=== PATIENT | female | born 1950 | race Two or more races ===

== ENCOUNTER 2020-03-04 22:59 | Inpatient (IN) | payer MEDICARE, MEDICAID ==
[~2020-03-04] VITALS: Ht 160 cm; Wt 54.4 kg
[2020-03-04] MEDS ORDERED: LANTUS SOL100 UNIT/1 SUBQ (23:08)
--- NOTE | 2020-03-04 23:11 | Emergency Room Report ---
History of Present Illness General Chief Complaint: Flu Like Symptoms Source: Patient, EMS Present Illness HPI This is a 69-year-old Setswana speaking female with a history of diabetes and high blood pressure. She presents with chief complaint of weakness and cough. She had symptoms for 7 days. She had generalized weakness, body pain, shortness of breath, cough. No Covid testing done prior. EMS was called 4 days ago and patient did not want to go to the hospital. Her oxygenation then was normal. The same EMS personnel responded to 911 call today. She had cough and symptoms worsen. Her room air oxygenation was 87%. They put her on 4 L and brought her here. Patient said symptom and worsening. Decreased appetite. Been in bed for the last 4 days. No nausea or vomiting or diarrhea. Subjective fever and chills. Coughing is productive of whitish sputum. Worse with exertion. Better with rest. Unknown sick contact. 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 Patient History Past Medical History: see triage record, old chart reviewed, DM, HTN Past Surgical History: other Pertinent Family History: none Last Menstrual Period: n/a Now: No Immunizations: other Reviewed Nursing Documentation: PMH: Agreed; PSxH: Agreed Nursing Documentation-PMH Past Medical History: No History, Except For Hx Hypertension: Yes Hx Diabetes: Yes Review of Systems Constitutional: Reports: chills, fever, malaise Eye: Denies: eye pain, blurred vision ENT: Denies: ear pain, nose congestion, throat swelling Respiratory: Reports: cough, shortness of breath Cardiovascular: Denies: chest pain, palpitations Gastrointestinal: Denies: abdominal pain, diarrhea, nausea, vomiting Musculoskeletal: Denies: back pain, joint pain Skin: Denies: rash Neurological: Denies: headache, numbness Endocrine: Denies: increased thirst, increased urine Hematologic/Lymphatic: Denies: easy bruising All Other Systems: negative except mentioned in HPI Physical Exam Vital Signs Date Time Temp Pulse Resp B/P (MAP) Pulse Ox O2 Delivery O2 Flow Rate FiO2 03/04/20 22:56 99.0 72 16 154/74 (100) 94 Nasal Cannula 4.0 Vitals with hypoxia and high blood pressure Sp02 EP Interpretation: reviewed, abnormal General Appearance: alert, mild distress, other - ill appearing Head: normocephalic, atraumatic Eyes: bilateral eye PERRL, bilateral eye EOMI ENT: hearing grossly normal, normal pharynx Neck: full range of motion, supple, no meningismus Respiratory: chest non-tender, normal breath sounds, rhonchi Cardiovascular #1: regular rate, rhythm, no murmur Gastrointestinal: normal bowel sounds, non tender, no mass, no organomegaly, no bruit, non-distended Musculoskeletal: back normal, normal range of motion, gait/station normal Psychiatric: mood/affect normal Procedures Critical Care Time Critical Care Time Critical care is mandated in this patient who presented with hypoxia secondary to Covid pneumonia. Patient require my urgent intervention to attenuate the risks of () which may lead to cardiovascular collapse and . Critical care time is 35 minutes excluding any reportable procedure. Critical care time included evaluation, multiple reevaluation, looking at old charts, interpreting laboratory and diagnostic data, discussing case with patient and family and consultants, and charting. Medical Decision Making Diagnostic Impression: Primary Impression: Pneumonia due to COVID-19 virus Additional Impressions: Acute respiratory failure due to COVID-19 Hypokalemia Hyperglycemia due to type 2 diabetes mellitus Qualified Codes: E11.65 - Type 2 diabetes mellitus with hyperglycemia ER Course This patient presents with cough and hypoxia. She probably had Covid pneumonia. Antibiotics given. Steroid and Lovenox given also. Oxygenation is stable on 4 L. Will admit for IV antibiotics and further work-up. I contacted Dr. Poole for admission. EKG Diagnostic Results Troponin ordered: Yes Rate: normal Rhythm: NSR ST Segments: no acute changes Rhythm Strip Diag. Results EP Interpretation: yes Rate: 88 Rhythm: NSR, no PVC's, no ectopy Chest X-Ray Diagnostic Results Chest X-Ray Diagnostic Results : Chest X-Ray Ordered: Yes # of Views/Limited/Complete: 1 View Indication: Shortness of Breath EP Interpretation: Yes Interpretation: no effusion, no pneumothorax, other - Bilateral infiltrates Impression: Other Electronically Signed by: Lamonte Maciel MD Last Vital Signs Date Time Temp Pulse Resp B/P (MAP) Pulse Ox O2 Delivery O2 Flow Rate FiO2 03/04/20 22:56 99.0 72 16 154/74 (100) 94 Nasal Cannula 4.0 Status: improved Disposition: ADMITTED INPATIENT Condition: Serious Lamonte Maciel MD Mar 04, 2020 23:11
[2020-03-04] MEDS ORDERED: Azithromycin 500 MG in NS 275 ML IVPB ONE (23:15)
[2020-03-04] MEDS ORDERED: dexAMETHasone 10mg/ml Inj IV ONE (23:15)
[2020-03-04] MEDS ORDERED: cefTRIAXone 1 GM in NS 55 ML IV ONE (23:15)
[2020-03-04] MEDS ORDERED: Acetaminophen 500mg (ES) tab ORAL ONE (23:15)
[2020-03-04] MEDS ORDERED: Enoxaparin 100mg Inj SUBQ ONE (23:15)
--- NOTE | 2020-03-04 23:30 | NUR ---
ED Nurse Note: Pt brought in by ambulance. Ptis pale, pashto speaking, co of head pain and feeling short of breath. SHe has a low grade fever and persistent cough. She has clear secreations when coughing. Per EMS her SPO2 was 80% on RA. She is currently 97% on 4LNC. She says that she feels nauseated and that she hasnt been able to eat or drink for 7 days. She is axox4 but forgetfull. IV placed, labs sent, COVID swab sent, EKG done at bedside.
--- NOTE | 2020-03-04 23:33 | Diagnostic Imaging Report ---
EXAM: XR Chest, 1 View CLINICAL HISTORY: SOB TECHNIQUE: Frontal view of the chest. COMPARISON: No relevant prior studies available. FINDINGS: Lungs: Multifocal bilateral airspace opacities consistent with multifocal pneumonia. Pleural space: No pleural effusion. No pneumothorax. Heart: Unremarkable. No cardiomegaly. IMPRESSION: Multifocal bilateral airspace opacities consistent with multifocal pneumonia. Correlate for Covid.
[2020-03-04 23:40] LABS: BASOPHILS % (AUTO) 0.2 % (0.0-2.0); EOSINOPHILS % (AUTO) 0.1 % (0.0-3.0); HEMATOCRIT 41.5 % (37.0-47.0); HEMOGLOBIN 14.1 G/DL (12.0-16.0); LYMPHOCYTES % (AUTO) 11.8 % (20.0-45.0); MEAN CORPUSCULAR VOLUME 88 FL (80-99); MONOCYTES % (AUTO) 3.8 % (1.0-10.0); NEUTROPHILS % (AUTO) 84.2 % (45.0-75.0); PLATELET COUNT 334 K/UL (150-450); RED BLOOD COUNT 4.72 M/UL (4.20-5.40); RED CELL DISTRIBUTION WIDTH 11.7 % (11.6-14.8); WHITE BLOOD COUNT 7.3 K/UL (4.8-10.8)
[2020-03-04 23:52] LABS: ANION GAP 18 mmol/L (5-15); BLOOD UREA NITROGEN 16 mg/dL (7-18); CALCIUM 9.1 MG/DL (8.5-10.1); CARBON DIOXIDE 22 MMOL/L (21-32); CHLORIDE 93 MMOL/L (98-107); CREATININE 0.8 MG/DL (0.55-1.30); POTASSIUM 2.9 MMOL/L (3.5-5.1); SODIUM 133 MMOL/L (136-145)
[2020-03-04 23:54] LABS: INR 0.9 (0.9-1.1)
[2020-03-04 23:58] VITALS: BP 152/72
[2020-03-05 00:07] LABS: ALANINE AMINOTRANSFERASE 19 U/L (12-78); ALBUMIN 2.9 G/DL (3.4-5.0); ALBUMIN/GLOBULIN RATIO 0.6 (1.0-2.7); ALKALINE PHOSPHATASE 89 U/L (46-116); ASPARTATE AMINO TRANSFERASE 28 U/L (15-37); BILIRUBIN,TOTAL 0.8 MG/DL (0.2-1.0); CKMB < 0.5 NG/ML (0.0-3.6); CREATINE KINASE 30 U/L (26-308); FERRITIN 659 NG/ML (8-388); LACTATE DEHYDROGENASE 418 U/L (81-234)
--- NOTE | 2020-03-05 00:10 | NUR ---
ED Nurse Note: Report given to Yolande
--- NOTE | 2020-03-05 00:56 | NUR ---
TRANSFER TO FLOOR: Patient transferred to as ordered, per ER MD. Report given to Yolande [id number]. Belongings and medications sent with pt. Belongings list done. Pt transfered with isolation precautions maintained.
[2020-03-05 01:01] LABS: APPEARANCE,URINE CLEAR; BILIRUBIN, URINE NEGATIVE (NEGATIVE); COLOR,URINE PALE YELLOW; GLUCOSE, URINE (UA) 4+ (NEGATIVE); KETONES,URINE 4+ (NEGATIVE); LEUKOCYTE ESTERASE ,URINE NEGATIVE (NEGATIVE); NITRITE,URINE NEGATIVE (NEGATIVE); PH,URINE 5 (4.5-8.0); PROTEIN,URINE 2+ (NEGATIVE); UROBILINOGEN,URINE NORMAL MG/DL (0.0-1.0)
[2020-03-05 01:25] VITALS: BP 125/62
[2020-03-05] MEDS ORDERED: guaiFENesin /DM 10ml syrup ORAL PRN (03:15)
[2020-03-05 04:00] VITALS: BP 126/65
[2020-03-05] MEDS ORDERED: PAXIL30 MG ORAL (05:04)
[2020-03-05] MEDS ORDERED: AMLODIPINE BESYL5 MG ORAL (05:04)
[2020-03-05] MEDS: NS w/KCl 20mEq 1000ml 1,000 ML IV SCH ×2 (05:38→13:16)
[2020-03-05] MEDS: NovoLOG Insulin Flexpen SUBQ SCH ×4 (06:03→21:34)
[2020-03-05] MEDS ORDERED: NovoLOG Insulin Flexpen SUBQ SCH ×3 (06:30)
--- NOTE | 2020-03-05 06:45 | NUR ---
NURSE HAND-OFF: Important Events on Shift: 1 soft BM this shift; uses the bedpan when not feeling week, otherwise incontinent of both bowel and bladder. new orders noted and initiated Patient Status: stable at this time Diet: see chart Pending Orders: see chart Pending Results/Labs:see chart Pending MD notification:see chart Latest Vital Signs: Temperature 97.4 , Pulse 64 , B/P 126 /65 , Respiratory Rate 16 , O2 SAT 98 , Nasal Cannula, O2 Flow Rate 4.0 . Vital Sign Comment: see above Latest Khoury Fall Score: 70 Fall Risk: High Risk Safety Measures: Call light Within Reach, Bed Alarm Zone 2, Side Rails Side Rails x2, Bed position Low and Locked. Fall Precautions: Yellow Socks Door Sign Patient Fall Education Report will be given to SUNSHINE Iqbal.
--- NOTE | 2020-03-05 07:26 | NUR ---
nurse's notes: home meds with receipt # [id number] was brought down to pharmacy by this RN.; receipt in chart
--- NOTE | 2020-03-05 07:50 | NUR ---
NURSE NOTES: RN received the patient in bed, aaoX4. Patient on 4 L of NC. C/O of nausea but refused Ondansetron. Bed in lowest position and locked. Call light within reach. Bed in lowest position and locked, bed alarm on. IV running, patent, dry and asymptomatic. Will continue to monitor.
[2020-03-05 07:58] LABS: HEMATOCRIT 37.7 % (37.0-47.0); HEMOGLOBIN 12.7 G/DL (12.0-16.0); MEAN CORPUSCULAR VOLUME 89 FL (80-99); PLATELET COUNT 309 K/UL (150-450); RED BLOOD COUNT 4.25 M/UL (4.20-5.40); RED CELL DISTRIBUTION WIDTH 11.9 % (11.6-14.8); WHITE BLOOD COUNT 6.6 K/UL (4.8-10.8)
[2020-03-05 08:00] VITALS: BP 131/69
--- NOTE | 2020-03-05 08:14 | History and Physical Report ---
DATE OF ADMISSION: 03/04/2020 CHIEF COMPLAINT: Pneumonia HISTORY OF PRESENT ILLNESS: The patient is a 69-year-old female. She has a history of hypertension and diabetes, presented with complaints of one week of progressive cough, congestion, shortness of breath, fevers, and chills. On evaluation in the emergency room, she had evidence of multifocal pneumonia. She was hypoxic and placed on 4 liters nasal cannula. Rapid COVID was unable to be done because of lack of reagents. The patient was given a dose of Decadron and has been started on IV antibiotic therapy for possible bacterial pneumonia. She is admitted for further evaluation and care. PAST MEDICAL HISTORY: As above. PAST SURGICAL HISTORY: None. CURRENT MEDICATIONS: Reconciled and reviewed. ALLERGIES: None. FAMILY HISTORY: None. SOCIAL HISTORY: Negative for tobacco, ethanol, or drugs. REVIEW OF SYSTEMS: GENERAL: Positive for fevers and chills, but no night sweats. HEENT: No headaches or visual changes. CARDIOPULMONARY: No chest pain. Positive for shortness of breath and cough. GASTROINTESTINAL: No nausea or vomiting. GENITOURINARY: No urgency or frequency. MUSCULOSKELETAL: No joint pain or swelling. NEUROLOGIC: No evidence of seizures. PHYSICAL EXAMINATION: VITAL SIGNS: Temperature 97.3, pulse 68, respirations 22, blood pressure 125/62. GENERAL: The patient is a thin female, in no apparent distress. HEART: Regular rate and rhythm. LUNGS: Clear anteriorly. ABDOMEN: Soft, nontender, and nondistended. EXTREMITIES: Without clubbing, cyanosis or edema. PERTINENT DATA: Chest x-ray showed multifocal bilateral infiltrates. White count was 7, hemoglobin 14. Lactic acid was 2. Troponin was negative. D-dimer is 1.8. UA was clear. ASSESSMENT: This is a 69-year-old female with history of hypertension and diabetes, admitted with complaints of pneumonia, possibly secondary to COVID-19. PLAN: 1. IV steroids. 2. Await COVID PCR. 3. Continue supplemental oxygen. 4. DVT and stress ulcer prophylaxes. 5. Monitor chest x-ray. 6. ID, Pulmonary, and Cardiology evaluations have been obtained. Sanya Poole M.D. DR: JOHN JOB#: [id number] CC:
[2020-03-05 08:31] LABS: ALANINE AMINOTRANSFERASE 15 U/L (12-78); ALBUMIN 2.4 G/DL (3.4-5.0); ALBUMIN/GLOBULIN RATIO 0.5 (1.0-2.7); ALKALINE PHOSPHATASE 78 U/L (46-116); ANION GAP 21 mmol/L (5-15); ASPARTATE AMINO TRANSFERASE 24 U/L (15-37); BILIRUBIN,TOTAL 0.5 MG/DL (0.2-1.0); BLOOD UREA NITROGEN 14 mg/dL (7-18); CALCIUM 8.5 MG/DL (8.5-10.1); CARBON DIOXIDE 17 MMOL/L (21-32); CHLORIDE 100 MMOL/L (98-107); CREATININE 0.7 MG/DL (0.55-1.30); POTASSIUM 3.3 MMOL/L (3.5-5.1); SODIUM 137 MMOL/L (136-145)
[2020-03-05] MEDS ORDERED: dexAMETHasone 10mg/ml Inj IV SCH ×2 (09:00)
[2020-03-05] MEDS: Levemir Flexpen SUBQ SCH (09:48)
--- NOTE | 2020-03-05 11:05 | NUR ---
CASE MANAGEMENT:REVIEW 69YR OLD MALE BIBA FROM HOME CC: FLU LIKE SYMPTOMS. 89% ON RA SI: COVID PNEUMONIA 98.9 72 16 154/74 94% ON 4L/NC NA-133 K-2.9 GLUCOSE+293 IS: IV AZITHROMYCIN IV DECADRON 1L NS BOLUS IV ROCEPHIN TYLENOL PO LOVENOX SQ CXR BLOOD CX : TO MED/SURG UNIT [facility]
--- NOTE | 2020-03-05 11:14 | Consultation ---
DATE OF CONSULTATION: 03/05/2020 INFECTIOUS DISEASES CONSULTATION This consult is for coverage of Dr. Diaz. CONSULTING PHYSICIAN: Lele Schuster MD PRIMARY ATTENDING PHYSICIAN: Sanya Poole MD. REASON FOR CONSULTATION: Pneumonia, likely COVID-19 disease. HISTORY OF PRESENT ILLNESS: This is a 69-year-old Tajik female admitted yesterday from home complaining of fever, weakness, cough, shortness of breath. The patient had these symptoms for 7 days, four days ago the family called for ambulance but the patient refused to come to the hospital. She was hypoxemic with O2 saturation of 87% in room air. PAST MEDICAL HISTORY: Diabetes and hypertension. MEDICATIONS: Getting Zithromax, Rocephin, Paxil, enoxaparin, amlodipine, dexamethasone, insulin detemir, insulin aspart, cough syrup, Tylenol. SOCIAL HISTORY: Single, originally from [place]. No history of alcohol, drug abuse, or smoking. REVIEW OF SYSTEMS: Weakness, dry cough, chest pain, decrease in appetite. PHYSICAL EXAMINATION: VITAL SIGNS: Temperature 97.3, pulse 64, blood pressure 131/69. GENERAL APPEARANCE: Seems to be thin. HEAD AND NECK: No teeth. HEART: Normal rate. LUNGS: Clear. ABDOMEN: Soft and nontender. EXTREMITIES: No edema. NEUROLOGIC: Awake, alert, oriented. LABORATORY AND DIAGNOSTIC DATA: WBC 6.6, hemoglobin 12.7, hematocrit 37.7, and platelets 309. Sodium 137, potassium 3.8, chloride 100, bicarb 17, BUN 14, creatinine 0.7, glucose 299. Chest x-ray showed bilateral multifocal infiltrate consistent with multifocal pneumonia. IMPRESSION: Pneumonia, highly suspected for COVID pneumonia, has diabetes mellitus with hyperglycemia, has hypoxemia, four liters of oxygen by nasal cannula, lymphocytopenia, hypertension. RECOMMENDATION: Continue dexamethasone, ceftriaxone, and Zithromax. Awaiting for COVID-19 PCR. At the end of my exam, I thank Dr. Poole, for involving me in the care of this patient. Lele Schuster M.D. DR: Brent JOB#: [id number] CC:
[2020-03-05 12:00] VITALS: BP_SYST 119; BP_SYST 134; BP_DIAS 60; BP_DIAS 70
--- NOTE | 2020-03-05 12:00 | NUR ---
NURSE NOTES: The first set of vital signs for 1200 is documented in error. See the second vital signs.
--- NOTE | 2020-03-05 12:39 | NUR ---
CHARGE NURSE NOTE: K-3.3. notified.
--- NOTE | 2020-03-05 13:26 | NUR ---
NURSE NOTES: Patient refused K-Dur saying that she has hard time digesting PO meds. RN notified Dr. Poole and waiting for further orders. Will continue to monitor.
[2020-03-05] MEDS ORDERED: Albuterol 90mcg Inhaler 8gm INH PRN (14:30)
--- NOTE | 2020-03-05 14:33 | Pulmonology Progress Note ---
Subjective ROS Limited/Unobtainable: No Allergies: Coded Allergies: No Known Allergies (Unverified , 03/04/20) Objective Last 24 Hour Vital Signs Date Time Temp Pulse Resp B/P (MAP) Pulse Ox O2 Delivery O2 Flow Rate FiO2 03/05/20 10:15 97.3 03/05/20 09:46 64 131/69 03/05/20 08:00 97.3 64 18 131/69 (89) 95 03/05/20 04:00 97.4 64 16 126/65 (85) 98 03/05/20 01:25 97.3 68 22 125/62 (83) 96 03/05/20 00:54 98.9 68 18 154/82 97 Nasal Cannula 4.0 03/05/20 00:49 Nasal Cannula 4.0 03/04/20 23:58 68 16 Nasal Cannula 4.0 03/04/20 23:58 99.0 68 16 152/72 94 Nasal Cannula 4.0 03/04/20 22:56 99.0 72 16 154/74 (100) 94 Nasal Cannula 4.0 Intake and Output 03/04/20 03/05/20 19:00 07:00 Intake Total 1500 ml Balance 1500 ml Intake Oral 100 ml IV Total 1400 ml # Voids 3 # Bowel Movements 1 Laboratory Tests 03/04/20 23:20: White Blood Count 7.3, Red Blood Count 4.72, Hemoglobin 14.1, Hematocrit 41.5, Mean Corpuscular Volume 88, Mean Corpuscular Hemoglobin 29.8, Mean Corpuscular Hemoglobin Concent 33.9, Red Cell Distribution Width 11.7, Platelet Count 334, Mean Platelet Volume 5.4L, Neutrophils (%) (Auto) 84.2H, Lymphocytes (%) (Auto) 11.8L, Monocytes (%) (Auto) 3.8, Eosinophils (%) (Auto) 0.1, Basophils (%) (Auto) 0.2, Prothrombin Time 10.5, Prothromb Time International Ratio 0.9, Activated Partial Thromboplast Time 27, D-Dimer 1.80H, Sodium Level 133L, Potassium Level 2.9L, Chloride Level 93L, Carbon Dioxide Level 22, Anion Gap 18H , Blood Urea Nitrogen 16, Creatinine 0.8, Estimat Glomerular Filtration Rate > 60, Glucose Level 293H, Lactic Acid Level 2.10H, Calcium Level 9.1, Ferritin 659H, Total Bilirubin 0.8, Aspartate Amino Transf (AST/SGOT) 28, Alanine Aminotransferase (ALT/SGPT) 19, Alkaline Phosphatase 89, Lactate Dehydrogenase 418H, Total Creatine Kinase 30, Creatine Kinase MB < 0.5, Creatine Kinase MB Relative Index 1.6, Troponin I 0.012, C-Reactive Protein, Quantitative 17.4H, Pro-B-Type Natriuretic Peptide 418H, Total Protein 7.8, Albumin 2.9L, Globulin 4.9, Albumin/Globulin Ratio 0.6L, Lipase 179 03/05/20 00:43: Lactic Acid Level 1.40 03/05/20 01:12: POC Whole Blood Glucose [Pending] 03/05/20 05:53: POC Whole Blood Glucose [Pending] 03/05/20 06:55: White Blood Count 6.6, Red Blood Count 4.25, Hemoglobin 12.7, Hematocrit 37.7, Mean Corpuscular Volume 89, Mean Corpuscular Hemoglobin 29.9, Mean Corpuscular Hemoglobin Concent 33.7, Red Cell Distribution Width 11.9, Platelet Count 309, Mean Platelet Volume 5.4L, Neutrophils (%) (Auto) , Lymphocytes (%) (Auto) , Monocytes (%) (Auto) , Eosinophils (%) (Auto) , Basophils (%) (Auto) , Differential Total Cells Counted 100, Neutrophils % (Manual) 86H, Lymphocytes % (Manual) 12L, Monocytes % (Manual) 2, Eosinophils % (Manual) 0, Basophils % (Manual) 0, Band Neutrophils 0, Platelet Estimate Adequate, Platelet Morphology Normal, Red Blood Cell Morphology Normal, Sodium Level 137, Potassium Level 3.3L , Chloride Level 100, Carbon Dioxide Level 17L, Anion Gap 21H, Blood Urea Nitrogen 14, Creatinine 0.7, Estimat Glomerular Filtration Rate > 60, Glucose Level 299H, Hemoglobin A1c 10.6H, Calcium Level 8.5, Magnesium Level 1.8, Total Bilirubin 0.5, Aspartate Amino Transf (AST/SGOT) 24, Alanine Aminotransferase (ALT/SGPT) 15, Alkaline Phosphatase 78, Total Protein 6.8, Albumin 2.4L, Globulin 4.4, Albumin/Globulin Ratio 0.5L 03/05/20 09:38: POC Whole Blood Glucose 304H 03/05/20 11:46: POC Whole Blood Glucose 295H Current Medications Medications (Trade) Dose Ordered Sig/Oj Route PRN Reason Start Time Stop Time Status Last Admin Dose Admin Acetaminophen (Tylenol) 650 mg Q4H PRN ORAL Mild Pain (Pain Scale 1-3) 03/05/20 03:15 04/04/20 03:14 03/05/20 09:45 Amlodipine Besylate (Norvasc) 5 mg DAILY ORAL 03/05/20 09:00 04/04/20 08:59 03/05/20 09:46 Azithromycin (Zithromax) 250 mg Q24H ORAL 03/05/20 21:00 03/12/20 20:59 Ceftriaxone Sodium 1 gm/ Dextrose 55 ml @ 110 mls/hr Q24H IVPB 03/05/20 21:00 03/12/20 20:59 Dexamethasone Sodium Phosphate (Decadron 10mg/ ml Inj) 6 mg DAILY IV 03/06/20 09:00 03/13/20 12:00 Dextrose (Dextrose 50%) 25 ml Q30M PRN IV Hypoglycemia 03/05/20 05:00 06/03/20 04:59 Dextrose (Dextrose 50%) 50 ml Q30M PRN IV Hypoglycemia 03/05/20 05:00 06/03/20 04:59 Enoxaparin Sodium (Lovenox) 40 mg DAILY@2100 SUBQ 03/05/20 21:00 06/03/20 20:59 Famotidine (Pepcid) 20 mg DAILY ORAL 03/05/20 09:00 06/03/20 08:59 03/05/20 09:45 Guaifenesin/ Dextromethorphan (Robitussin DM Syrup) 10 ml Q4H PRN ORAL For Cough 03/05/20 03:15 06/03/20 03:14 Insulin Aspart (NovoLOG) BEFORE MEALS AND HS SUBQ 03/05/20 06:30 06/03/20 06:29 03/05/20 12:00 Insulin Detemir (Levemir) 25 units DAILY SUBQ 03/05/20 09:00 06/03/20 08:59 03/05/20 09:48 Paroxetine HCl (Paxil) 30 mg BEDTIME ORAL 03/05/20 21:00 04/04/20 20:59 Potassium Chloride/Sodium Chloride 1,000 ml @ 100 mls/hr Q10H IV 03/05/20 04:00 04/04/20 03:59 03/05/20 13:16 Potassium Chloride (K-Dur) 40 meq ONCE ORAL 03/05/20 12:45 03/05/20 16:00 Assessment/Plan Assessment/Plan Pulmonary Consultation HPI: The patient is a 69-year-old woman with a past history of hypertension and diabetes, admitted with possible Covid19 Pneumonia,she complained of one week history of worsening cough, shortness of breath, fevers/chills. Noted to be hypoxic requiring4 liters nasal cannula O2. On Dexamethasone/AB per ID Past Medical History: HTN,DM PSH: NC Medications: Noted Allergies: NKDA FH: NC SH: Negative ROS: Negative aside from above Objective: Vital Signs noted: PE: GENERAL: The patient is a thin female, in no apparent distress. HEENR: NCAT,moist mm HEART: Regular rate and rhythm. HS1,HS2 normal LUNGS: CTAB ABDOMEN: SNTND EXTREMITIES: No clubbing, cyanosis or edema. TELEVISION CAMERAMAN: Intact Labs: Noted Chest x-ray showed multifocal bilateral infiltrates. Impression: Possible Covid19 Pneumonia - Covid test pending Hypoxic Respiratory Failure Hypertension Diabetes Plan: - IV steroids/AB per ID - Await COVID PCR. - Oxygen PRN - BD PRN - PPX - Monitor labs - Imaging PRN Zaid Vicente MD Mar 05, 2020 14:33
[2020-03-05 16:00] VITALS: BP 134/70
[2020-03-05] MEDS: Morphine Sulfate 4mg/ml Inj (IV USE ONLY) IVP PRN ×2 (16:05→20:50)
--- NOTE | 2020-03-05 19:30 | NUR ---
NURSE NOTES: Received report from SUNSHINE Zhou. Pt is A&Ox4. Bed locked and in lowest position, call light within reach. IVF infusing well. Pt has no needs right now and is aware of how to use call light and ask for assistance.
--- NOTE | 2020-03-05 19:30 | NUR ---
NURSE HAND-OFF: Important Events on Shift:pain management, instructions on intake of K-dur medicine Patient Status: SOB Diet: consistent carb diet low Pending Orders: n/a Pending Results/Labs:n/a Pending MD notification:n/a Latest Vital Signs: Temperature 97.3 , Pulse 66 , B/P 134 /70 , Respiratory Rate 18 , O2 SAT 96 , Nasal Cannula, O2 Flow Rate 4.0 . Vital Sign Comment: stable Latest Khoury Fall Score: 70 Fall Risk: High Risk Safety Measures: Call light Within Reach, Bed Alarm Zone 2, Side Rails Side Rails x3, Bed position Low and Locked. Fall Precautions: Yellow Socks Door Sign Patient Fall Education Report given to
[2020-03-05 20:00] VITALS: BP 140/78
[2020-03-05] MEDS: cefTRIAXone 1 GM in D5W 55 ML IVPB SCH (20:23)
[2020-03-05] MEDS: Enoxaparin 40mg Inj SUBQ SCH (20:24)
[2020-03-05] MEDS: Azithromycin 250mg tab ORAL SCH (20:25)
[2020-03-05] MEDS: PARoxetine HCL 10mg tab ORAL SCH (20:25)
[2020-03-05] MEDS ORDERED: Enoxaparin 40mg Inj SUBQ SCH (21:00)
[2020-03-06] VITALS: BP 148/78
[2020-03-06] MEDS: Morphine Sulfate 4mg/ml Inj (IV USE ONLY) IVP PRN (01:11)
[2020-03-06] MEDS: NS w/KCl 20mEq 1000ml 1,000 ML IV SCH ×3 (01:11→20:03)
--- NOTE | 2020-03-06 02:18 | Cardiology Progress Note ---
Subjective DATE OF SERVICE: Mar 05, 2020 Weak and withdrawn Still SOB No CP Remains on O2 suppl by nasal cannula Objective Last 24 Hour Vital Signs Date Time Temp Pulse Resp B/P (MAP) Pulse Ox O2 Delivery O2 Flow Rate FiO2 03/06/20 00:00 97.0 60 16 148/78 (101) 98 03/05/20 21:00 Nasal Cannula 4.0 03/05/20 20:00 97.4 62 16 140/78 (98) 95 03/05/20 16:35 97.3 03/05/20 16:00 97.3 66 18 134/70 (91) 96 03/05/20 12:00 97.3 66 18 134/70 (91) 96 03/05/20 12:00 97.3 63 18 119/60 (79) 96 03/05/20 10:15 97.3 03/05/20 09:46 64 131/69 03/05/20 09:00 Nasal Cannula 4.0 03/05/20 08:00 97.3 64 18 131/69 (89) 95 03/05/20 04:00 97.4 64 16 126/65 (85) 98 ROS: unchanged from 03/04/20 HEENT: normal ENT inspection RHYTHM: NSR, PACs LUNGS: bilateral rhonchi CARDIAC: normal rate, regular rhythm, normal S1 and S2, gallop/S4 ABDOMEN: normal bowel sounds, non tender, soft, no organomegaly EXTREMITIES: non-tender, no calf tenderness, trace edema Laboratory Tests Test 03/05/20 05:53 03/05/20 06:55 03/05/20 09:38 03/05/20 11:46 POC Whole Blood Glucose Pending 304 MG/DL (74-106) H 295 MG/DL (74-106) H White Blood Count 6.6 K/UL (4.8-10.8) Red Blood Count 4.25 M/UL (4.20-5.40) Hemoglobin 12.7 G/DL (12.0-16.0) Hematocrit 37.7 % (37.0-47.0) Mean Corpuscular Volume 89 FL (80-99) Mean Corpuscular Hemoglobin 29.9 PG (27.0-31.0) Mean Corpuscular Hemoglobin Concent 33.7 G/DL (32.0-36.0) Red Cell Distribution Width 11.9 % (11.6-14.8) Platelet Count 309 K/UL (150-450) Mean Platelet Volume 5.4 FL (6.5-10.1) L Neutrophils (%) (Auto) % (45.0-75.0) Lymphocytes (%) (Auto) % (20.0-45.0) Monocytes (%) (Auto) % (1.0-10.0) Eosinophils (%) (Auto) % (0.0-3.0) Basophils (%) (Auto) % (0.0-2.0) Differential Total Cells Counted 100 Neutrophils % (Manual) 86 % (45-75) H Lymphocytes % (Manual) 12 % (20-45) L Monocytes % (Manual) 2 % (1-10) Eosinophils % (Manual) 0 % (0-3) Basophils % (Manual) 0 % (0-2) Band Neutrophils 0 % (0-8) Platelet Estimate Adequate Platelet Morphology Normal Red Blood Cell Morphology Normal Sodium Level 137 MMOL/L (136-145) Potassium Level 3.3 MMOL/L (3.5-5.1) L Chloride Level 100 MMOL/L (98-107) Carbon Dioxide Level 17 MMOL/L (21-32) L Anion Gap 21 mmol/L (5-15) H Blood Urea Nitrogen 14 mg/dL (7-18) Creatinine 0.7 MG/DL (0.55-1.30) Estimat Glomerular Filtration Rate > 60 mL/min (>60) Glucose Level 299 MG/DL (74-106) H Hemoglobin A1c 10.6 % (4.3-6.0) H Calcium Level 8.5 MG/DL (8.5-10.1) Magnesium Level 1.8 MG/DL (1.8-2.4) Total Bilirubin 0.5 MG/DL (0.2-1.0) Aspartate Amino Transf (AST/SGOT) 24 U/L (15-37) Alanine Aminotransferase (ALT/SGPT) 15 U/L (12-78) Alkaline Phosphatase 78 U/L (46-116) Total Protein 6.8 G/DL (6.4-8.2) Albumin 2.4 G/DL (3.4-5.0) L Globulin 4.4 g/dL Albumin/Globulin Ratio 0.5 (1.0-2.7) L Test 03/05/20 16:39 03/05/20 21:25 POC Whole Blood Glucose 234 MG/DL (74-106) H 274 MG/DL (74-106) H Assessment/Plan Assessment/Plan Pneumonia Hypoxia Possible Covid 19 PNA Lactic acidosis resolving Hypertension/HHD Chronic diastolic CHF NIDDM IVF O2 suppl Respiratory support F/U cultures and Covid swab Antimicrobials per ID DVT prophyl Zaid Rosado MD Mar 06, 2020 02:18
[2020-03-06 04:00] VITALS: BP 129/61
[2020-03-06] MEDS: NovoLOG Insulin Flexpen SUBQ SCH ×4 (07:06→21:00)
--- NOTE | 2020-03-06 07:25 | NUR ---
NURSE HAND-OFF: Important Events on Shift: Pain management Patient Status: calm Diet: CCHO low Pending Orders: Pending Results/Labs: Covid PCR Pending MD notification: Latest Vital Signs: Temperature 97.1 , Pulse 67 , B/P 129 /61 , Respiratory Rate 16 , O2 SAT 97 , Nasal Cannula, O2 Flow Rate 4.0 . Vital Sign Comment: VSS Latest Khoury Fall Score: 70 Fall Risk: High Risk Safety Measures: Call light Within Reach, Bed Alarm Zone 2, Side Rails Side Rails x3, Bed position Low and Locked. Fall Precautions: Yellow Socks Door Sign Patient Fall Education Report given to SUNSHINE Zhou.
--- NOTE | 2020-03-06 07:39 | NUR ---
NURSE NOTES: RN received patient in bed, aaoX4. Patient shows no s/s of respiratory distress but complains of headache. IV running, asymptomatic, intact and dry. Call light within reach. Bed in lowest position and locked. Will continue to monitor. Addendum: 03/06/20 at 1050 by Abelardo Prieto RN Patient complains of slight headache but refused Tylenol.
[2020-03-06 08:00] VITALS: BP 149/78
[2020-03-06 08:22] LABS: HEMATOCRIT 38.3 % (37.0-47.0); HEMOGLOBIN 13.2 G/DL (12.0-16.0); MEAN CORPUSCULAR VOLUME 87 FL (80-99); PLATELET COUNT 355 K/UL (150-450); RED BLOOD COUNT 4.39 M/UL (4.20-5.40); RED CELL DISTRIBUTION WIDTH 11.9 % (11.6-14.8); WHITE BLOOD COUNT 10.9 K/UL (4.8-10.8)
[2020-03-06] MEDS: Levemir Flexpen SUBQ SCH (09:18)
[2020-03-06] MEDS: dexAMETHasone 10mg/ml Inj IV SCH (09:19)
[2020-03-06 09:32] LABS: ALANINE AMINOTRANSFERASE 12 U/L (12-78); ALBUMIN 2.3 G/DL (3.4-5.0); ALBUMIN/GLOBULIN RATIO 0.5 (1.0-2.7); ALKALINE PHOSPHATASE 73 U/L (46-116); ANION GAP 10 mmol/L (5-15); ASPARTATE AMINO TRANSFERASE 23 U/L (15-37); BILIRUBIN,TOTAL 0.2 MG/DL (0.2-1.0); BLOOD UREA NITROGEN 9 mg/dL (7-18); CALCIUM 8.6 MG/DL (8.5-10.1); CARBON DIOXIDE 26 MMOL/L (21-32); CHLORIDE 102 MMOL/L (98-107); CREATININE 0.6 MG/DL (0.55-1.30); POTASSIUM 3.4 MMOL/L (3.5-5.1); SODIUM 138 MMOL/L (136-145)
--- NOTE | 2020-03-06 10:31 | NUR ---
NURSE NOTES: Patient's temperature is 95.7. Patient asymptomatic. RN made aware and covered the patient with three layers of blanket, lowered the room temperature and provided with heat packs. Will continue to monitor.
[2020-03-06 12:00] VITALS: BP 152/77
--- NOTE | 2020-03-06 12:00 | NUR ---
5 Addendum: 03/06/20 at 1419 by Abelardo Prieto RN documented in error
--- NOTE | 2020-03-06 12:00 | NUR ---
NURSE NOTES: Patient's body temperature now increased to 96.7, asymptomatic. Will continue to monitor.
--- NOTE | 2020-03-06 12:03 | General Progress Note ---
Subjective ROS Limited/Unobtainable: No Constitutional: Reports: malaise, weakness HEENT: Reports: no symptoms Cardiovascular: Reports: no symptoms Respiratory: Reports: cough, shortness of breath Gastrointestinal/Abdominal: Reports: no symptoms Genitourinary: Reports: no symptoms Neurologic/Psychiatric: Reports: anxiety Endocrine: Reports: no symptoms Hematologic/Lymphatic: Reports: no symptoms Allergies: Coded Allergies: No Known Allergies (Unverified , 03/04/20) All Systems: reviewed and negative except above Subjective continued sob. ?hypothermic. on o2. no fevers. pulm, cads, id appreciated. Objective Last 24 Hour Vital Signs Date Time Temp Pulse Resp B/P (MAP) Pulse Ox O2 Delivery O2 Flow Rate FiO2 03/06/20 09:19 67 149/78 03/06/20 09:00 Nasal Cannula 4.0 03/06/20 08:00 95.7 19 149/78 (101) 92 03/06/20 04:00 97.1 67 16 129/61 (83) 97 03/06/20 00:00 97.0 60 16 148/78 (101) 98 03/05/20 21:00 Nasal Cannula 4.0 03/05/20 20:00 97.4 62 16 140/78 (98) 95 03/05/20 16:35 97.3 03/05/20 16:00 97.3 66 18 134/70 (91) 96 Intake and Output 03/05/20 03/06/20 19:00 07:00 Intake Total 480 ml 260 ml Balance 480 ml 260 ml Intake Oral 480 ml Other 260 ml # Voids 3 2 # Bowel Movements 1 Laboratory Tests 03/05/20 16:39: POC Whole Blood Glucose 234H 03/05/20 21:25: POC Whole Blood Glucose 274H 03/06/20 06:34: White Blood Count 10.9#H, Red Blood Count 4.39, Hemoglobin 13.2, Hematocrit 38.3, Mean Corpuscular Volume 87, Mean Corpuscular Hemoglobin 30.0, Mean Corpuscular Hemoglobin Concent 34.3, Red Cell Distribution Width 11.9, Platelet Count 355, Mean Platelet Volume 5.1L, Neutrophils (%) (Auto) , Lymphocytes (%) (Auto) , Monocytes (%) (Auto) , Eosinophils (%) (Auto) , Basophils (%) (Auto) , Differential Total Cells Counted 100, Neutrophils % (Manual) 90H, Lymphocytes % (Manual) 7L, Monocytes % (Manual) 3, Eosinophils % (Manual) 0, Basophils % (Manual) 0, Band Neutrophils 0, Platelet Estimate Adequate, Platelet Morphology Normal, Red Blood Cell Morphology Normal, Sodium Level 138, Potassium Level 3.4L , Chloride Level 102, Carbon Dioxide Level 26, Anion Gap 10, Blood Urea Nitrogen 9, Creatinine 0.6, Estimat Glomerular Filtration Rate > 60, Glucose Level 203H, Calcium Level 8.6, Magnesium Level 1.7L, Total Bilirubin 0.2, Aspartate Amino Transf (AST/SGOT) 23, Alanine Aminotransferase (ALT/SGPT) 12, Alkaline Phosphatase 73, Pro-B-Type Natriuretic Peptide 505H, Total Protein 6.5, Albumin 2.3L, Globulin 4.2, Albumin/Globulin Ratio 0.5L 03/06/20 06:55: POC Whole Blood Glucose 202H 03/06/20 09:11: POC Whole Blood Glucose 211H 03/06/20 11:12: POC Whole Blood Glucose 187H Height (Feet): 5 Height (Inches): 3.00 Weight (Pounds): 120 General Appearance: WD/WN, alert EENT: normal ENT inspection Neck: normal alignment, supple Cardiovascular: normal peripheral pulses, normal rate, regular rhythm Respiratory/Chest: chest wall non-tender, lungs clear, normal breath sounds Abdomen: normal bowel sounds, non tender, soft, no organomegaly Edema: no edema noted Arm (L), no edema noted Arm (R) 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, alert, oriented x 3 Assessment/Plan Problem List: (1) Acute respiratory failure due to COVID-19 ICD Codes: U07.1 - COVID-19; J96.00 - Acute respiratory failure, unspecified whether with hypoxia or hypercapnia SNOMED: 393742354, 38259295 (2) Pneumonia due to COVID-19 virus ICD Codes: U07.1 - COVID-19; J12.82 - Pneumonia due to coronavirus disease 2019 SNOMED: 429114830302821901 (3) Hypokalemia ICD Codes: E87.6 - Hypokalemia; J96.00 - Acute respiratory failure, unspecified whether with hypoxia or hypercapnia SNOMED: 88132810, 12376474 (4) Hyperglycemia due to type 2 diabetes mellitus ICD Codes: E11.65 - Type 2 diabetes mellitus with hyperglycemia; J96.00 - Acute respiratory failure, unspecified whether with hypoxia or hypercapnia SNOMED: 932983218424424, 71732514 Qualifiers: Qualified Codes: E11.65 - Type 2 diabetes mellitus with hyperglycemia Status: stable Assessment/Plan: cont current rx warming measures check TFTs steroids per id ivf o2 resp rx replace Mg and K dvt/stress ulcer prophylaxis Sanya Poole MD Mar 06, 2020 12:03
--- NOTE | 2020-03-06 15:30 | NUR ---
NURSE NOTES: RN collected nasal swab for PCR from the patient's right nostril and sent it to the lab.
--- NOTE | 2020-03-06 15:50 | Pulmonology Progress Note ---
Subjective ROS Limited/Unobtainable: No Allergies: Coded Allergies: No Known Allergies (Unverified , 03/04/20) All Systems: reviewed and negative except above Objective Last 24 Hour Vital Signs Date Time Temp Pulse Resp B/P (MAP) Pulse Ox O2 Delivery O2 Flow Rate FiO2 03/06/20 12:00 96.8 63 18 152/77 (102) 92 03/06/20 09:19 67 149/78 03/06/20 09:00 Nasal Cannula 4.0 03/06/20 08:00 95.7 19 149/78 (101) 92 03/06/20 04:00 97.1 67 16 129/61 (83) 97 03/06/20 00:00 97.0 60 16 148/78 (101) 98 03/05/20 21:00 Nasal Cannula 4.0 03/05/20 20:00 97.4 62 16 140/78 (98) 95 03/05/20 16:35 97.3 03/05/20 16:00 97.3 66 18 134/70 (91) 96 Intake and Output 03/05/20 03/06/20 19:00 07:00 Intake Total 480 ml 260 ml Balance 480 ml 260 ml Intake Oral 480 ml Other 260 ml # Voids 3 2 # Bowel Movements 1 Microbiology Date/Time Source Procedure Growth Status 03/04/20 23:20 Blood Blood Culture - Preliminary NO GROWTH AFTER 24 HOURS Resulted 03/04/20 23:05 Blood Blood Culture - Preliminary NO GROWTH AFTER 24 HOURS Resulted Laboratory Tests 03/05/20 16:39: POC Whole Blood Glucose 234H 03/05/20 21:25: POC Whole Blood Glucose 274H 03/06/20 06:34: White Blood Count 10.9#H, Red Blood Count 4.39, Hemoglobin 13.2, Hematocrit 38.3, Mean Corpuscular Volume 87, Mean Corpuscular Hemoglobin 30.0, Mean Corpuscular Hemoglobin Concent 34.3, Red Cell Distribution Width 11.9, Platelet Count 355, Mean Platelet Volume 5.1L, Neutrophils (%) (Auto) , Lymphocytes (%) (Auto) , Monocytes (%) (Auto) , Eosinophils (%) (Auto) , Basophils (%) (Auto) , Differential Total Cells Counted 100, Neutrophils % (Manual) 90H, Lymphocytes % (Manual) 7L, Monocytes % (Manual) 3, Eosinophils % (Manual) 0, Basophils % (Manual) 0, Band Neutrophils 0, Platelet Estimate Adequate, Platelet Morphology Normal, Red Blood Cell Morphology Normal, Sodium Level 138, Potassium Level 3.4L , Chloride Level 102, Carbon Dioxide Level 26, Anion Gap 10, Blood Urea Nitrogen 9, Creatinine 0.6, Estimat Glomerular Filtration Rate > 60, Glucose Level 203H, Calcium Level 8.6, Magnesium Level 1.7L, Total Bilirubin 0.2, Aspartate Amino Transf (AST/SGOT) 23, Alanine Aminotransferase (ALT/SGPT) 12, Alkaline Phosphatase 73, Pro-B-Type Natriuretic Peptide 505H, Total Protein 6.5, Albumin 2.3L, Globulin 4.2, Albumin/Globulin Ratio 0.5L 03/06/20 06:55: POC Whole Blood Glucose 202H 03/06/20 09:11: POC Whole Blood Glucose 211H 03/06/20 11:12: POC Whole Blood Glucose 187H Current Medications Medications (Trade) Dose Ordered Sig/Oj Route PRN Reason Start Time Stop Time Status Last Admin Dose Admin Acetaminophen (Tylenol) 650 mg Q4H PRN ORAL Mild Pain (Pain Scale 1-3) 03/05/20 03:15 04/04/20 03:14 03/05/20 09:45 Albuterol Sulfate (Proventil MDI) 2 puff Q4H PRN INH Shortness of Breath 03/05/20 14:30 06/03/20 14:29 Amlodipine Besylate (Norvasc) 5 mg DAILY ORAL 03/05/20 09:00 04/04/20 08:59 03/06/20 09:19 Azithromycin (Zithromax) 250 mg Q24H ORAL 03/05/20 21:00 03/12/20 20:59 03/05/20 20:25 Ceftriaxone Sodium 1 gm/ Dextrose 55 ml @ 110 mls/hr Q24H IVPB 03/05/20 21:00 03/12/20 20:59 03/05/20 20:23 Dexamethasone Sodium Phosphate (Decadron 10mg/ ml Inj) 6 mg DAILY IV 03/06/20 09:00 03/13/20 12:00 03/06/20 09:19 Dextrose (Dextrose 50%) 25 ml Q30M PRN IV Hypoglycemia 03/05/20 05:00 06/03/20 04:59 Dextrose (Dextrose 50%) 50 ml Q30M PRN IV Hypoglycemia 03/05/20 05:00 06/03/20 04:59 Enoxaparin Sodium (Lovenox) 40 mg DAILY@2100 SUBQ 03/05/20 21:00 06/03/20 20:59 03/05/20 20:24 Famotidine (Pepcid) 20 mg DAILY ORAL 03/05/20 09:00 06/03/20 08:59 03/06/20 09:19 Guaifenesin/ Dextromethorphan (Robitussin DM Syrup) 10 ml Q4H PRN ORAL For Cough 03/05/20 03:15 06/03/20 03:14 Insulin Aspart (NovoLOG) BEFORE MEALS AND HS SUBQ 03/05/20 06:30 06/03/20 06:29 03/06/20 11:34 Insulin Detemir (Levemir) 25 units DAILY SUBQ 03/05/20 09:00 06/03/20 08:59 03/06/20 09:18 Morphine Sulfate (Morphine Sulfate) 1 mg Q4H PRN IVP Severe Pain (Pain Scale 7-10) 03/05/20 15:30 03/12/20 15:29 03/06/20 01:11 Paroxetine HCl (Paxil) 30 mg BEDTIME ORAL 03/05/20 21:00 04/04/20 20:59 03/05/20 20:25 Potassium Chloride/Sodium Chloride 1,000 ml @ 100 mls/hr Q10H IV 03/05/20 04:00 04/04/20 03:59 03/06/20 01:11 Assessment/Plan Assessment/Plan Pulmonary Progress Note HPI: The patient is a 69-year-old woman with a past history of hypertension and diabetes, admitted with possible Covid19 Pneumonia,she complained of one week history of w orsening cough, shortness of breath, fevers/chills. Remains on 4 liters nasal cannula O2. On Dexamethasone/AB per ID Past Medical History: HTN,DM PSH: NC Medications: Noted Allergies: NKDA FH: NC SH: Negative Objective: Vital Signs noted: PE: Deferred Covid19 Labs: Noted Chest x-ray showed multifocal bilateral infiltrates. Impression: Possible Covid19 Pneumonia - Covid test pending Hypoxic Respiratory Failure Hypertension Diabetes Plan: - IV steroids/AB per ID - Await COVID PCR. - Oxygen PRN - BD PRN - PPX - Monitor labs - Imaging PRN Zaid Vicente MD Mar 06, 2020 15:50
[2020-03-06 16:00] VITALS: BP 138/73
--- NOTE | 2020-03-06 16:53 | NUR ---
NURSE NOTES: Patient's body temperature increased to 96.8. RN provided with more heat packs and increased room temperature to 80.
--- NOTE | 2020-03-06 17:14 | Cardiology Progress Note ---
Subjective DATE OF SERVICE: Mar 06, 2020 Weak but more alert Low temperature noted Still SOB at times No CP Remains on O2 suppl by nasal cannula Covid 19 swab still pending Objective Last 24 Hour Vital Signs Date Time Temp Pulse Resp B/P (MAP) Pulse Ox O2 Delivery O2 Flow Rate FiO2 03/06/20 16:00 96.8 61 18 138/73 (94) 92 03/06/20 12:00 96.8 63 18 152/77 (102) 92 03/06/20 09:19 67 149/78 03/06/20 09:00 Nasal Cannula 4.0 03/06/20 08:00 95.7 19 149/78 (101) 92 03/06/20 04:00 97.1 67 16 129/61 (83) 97 03/06/20 00:00 97.0 60 16 148/78 (101) 98 03/05/20 21:00 Nasal Cannula 4.0 03/05/20 20:00 97.4 62 16 140/78 (98) 95 ROS: unchanged from 03/04/20 HEENT: normal ENT inspection RHYTHM: NSR, PACs LUNGS: bilateral rhonchi CARDIAC: normal rate, regular rhythm, normal S1 and S2, gallop/S4 ABDOMEN: normal bowel sounds, non tender, soft, no organomegaly EXTREMITIES: non-tender, no calf tenderness, trace edema Laboratory Tests Test 03/05/20 21:25 03/06/20 06:34 03/06/20 06:55 03/06/20 09:11 POC Whole Blood Glucose 274 MG/DL (74-106) H 202 MG/DL (74-106) H 211 MG/DL (74-106) H White Blood Count 10.9 K/UL (4.8-10.8) #H Red Blood Count 4.39 M/UL (4.20-5.40) Hemoglobin 13.2 G/DL (12.0-16.0) Hematocrit 38.3 % (37.0-47.0) Mean Corpuscular Volume 87 FL (80-99) Mean Corpuscular Hemoglobin 30.0 PG (27.0-31.0) Mean Corpuscular Hemoglobin Concent 34.3 G/DL (32.0-36.0) Red Cell Distribution Width 11.9 % (11.6-14.8) Platelet Count 355 K/UL (150-450) Mean Platelet Volume 5.1 FL (6.5-10.1) L Neutrophils (%) (Auto) % (45.0-75.0) Lymphocytes (%) (Auto) % (20.0-45.0) Monocytes (%) (Auto) % (1.0-10.0) Eosinophils (%) (Auto) % (0.0-3.0) Basophils (%) (Auto) % (0.0-2.0) Differential Total Cells Counted 100 Neutrophils % (Manual) 90 % (45-75) H Lymphocytes % (Manual) 7 % (20-45) L Monocytes % (Manual) 3 % (1-10) Eosinophils % (Manual) 0 % (0-3) Basophils % (Manual) 0 % (0-2) Band Neutrophils 0 % (0-8) Platelet Estimate Adequate Platelet Morphology Normal Red Blood Cell Morphology Normal Sodium Level 138 MMOL/L (136-145) Potassium Level 3.4 MMOL/L (3.5-5.1) L Chloride Level 102 MMOL/L (98-107) Carbon Dioxide Level 26 MMOL/L (21-32) Anion Gap 10 mmol/L (5-15) Blood Urea Nitrogen 9 mg/dL (7-18) Creatinine 0.6 MG/DL (0.55-1.30) Estimat Glomerular Filtration Rate > 60 mL/min (>60) Glucose Level 203 MG/DL (74-106) H Calcium Level 8.6 MG/DL (8.5-10.1) Magnesium Level 1.7 MG/DL (1.8-2.4) L Total Bilirubin 0.2 MG/DL (0.2-1.0) Aspartate Amino Transf (AST/SGOT) 23 U/L (15-37) Alanine Aminotransferase (ALT/SGPT) 12 U/L (12-78) Alkaline Phosphatase 73 U/L (46-116) Pro-B-Type Natriuretic Peptide 505 pg/mL (0-125) H Total Protein 6.5 G/DL (6.4-8.2) Albumin 2.3 G/DL (3.4-5.0) L Globulin 4.2 g/dL Albumin/Globulin Ratio 0.5 (1.0-2.7) L Test 03/06/20 11:12 03/06/20 16:12 POC Whole Blood Glucose 187 MG/DL (74-106) H 295 MG/DL (74-106) H Microbiology Date/Time Source Procedure Growth Status 03/04/20 23:20 Blood Blood Culture - Preliminary NO GROWTH AFTER 24 HOURS Resulted 03/04/20 23:05 Blood Blood Culture - Preliminary NO GROWTH AFTER 24 HOURS Resulted Assessment/Plan Assessment/Plan Pneumonia Hypoxia Hypothermia Possible Covid 19 PNA Lactic acidosis resolving Hypertension/HHD Acute/chronic diastolic CHF NIDDM IVF Warming measures O2 suppl Steroids Respiratory support F/U cultures and Covid swab Antimicrobials per ID DVT prophyl Agree with metabolic work up incl TSH Zaid Rosado MD Mar 06, 2020 17:14
--- NOTE | 2020-03-06 19:34 | NUR ---
NURSE HAND-OFF: Important Events on Shift:low body temperature, elevated WBC Patient Status: stable Diet: consistent carb diet low Pending Orders: n/a Pending Results/Labs:n/a Pending MD notification:n/a Latest Vital Signs: Temperature 96.8 , Pulse 61 , B/P 138 /73 , Respiratory Rate 18 , O2 SAT 92 , Nasal Cannula, O2 Flow Rate 4.0 . Vital Sign Comment: slightly low body temperature Latest Khoury Fall Score: 70 Fall Risk: High Risk Safety Measures: Call light Within Reach, Bed Alarm Zone 2, Side Rails Side Rails x3, Bed position Low and Locked. Fall Precautions: Yellow Socks Door Sign Patient Fall Education Report given to ARLET Stauffer. Addendum: 03/06/20 at 1943 by Abelardo Prieto RN PCR collected and result pending
--- NOTE | 2020-03-06 19:40 | NUR ---
NURSE NOTES: The patient is alert and oriented x3, a Kiswahili speaker and is on 4 liters of oxygen via NC with Spo2 of about 92 %. The patient was noted with anxiety and agitations. She continuously yelling and putting on the call light. A calm environment and translation was provided as indicated. She was given he pain medicine, morphine suf 1mg and was able to relaxed. She is able to turned and re-position herself and presently has a left AC 20g IV line that is patent and asymptomatic. The bed in lowest level,locked and the call light within easy reach. will continue to monitor as indicated.
[2020-03-06 20:00] VITALS: BP 136/70
[2020-03-06] MEDS: cefTRIAXone 1 GM in D5W 55 ML IVPB SCH (20:43)
[2020-03-06] MEDS: PARoxetine HCL 10mg tab ORAL SCH (20:43)
[2020-03-06] MEDS: Azithromycin 250mg tab ORAL SCH (20:43)
[2020-03-06] MEDS: Enoxaparin 40mg Inj SUBQ SCH (20:45)
[2020-03-07] VITALS: BP 135/68
[2020-03-07 04:00] VITALS: BP 152/74
--- NOTE | 2020-03-07 04:36 | NUR ---
NURSE NOTES: The patient has continuos anxiety and was given her PRN morphine sulphate well tolerated. She slept about 8 hrs last night but wakeup multiple times saying she will like to go home. The patient is confused and is on 4 liters of oxygen with Spo2 @ 93%. will continue to monitor as indicated
[2020-03-07] MEDS: NS w/KCl 20mEq 1000ml 1,000 ML IV SCH ×2 (06:00→17:16)
[2020-03-07] MEDS: NovoLOG Insulin Flexpen SUBQ SCH ×4 (06:37→21:09)
--- NOTE | 2020-03-07 07:49 | NUR ---
NURSE HAND-OFF: Important Events on Shift:Anxiety and agitations also noted Patient Status: Diet: Pending Orders: Pending Results/Labs: Pending MD notification: Latest Vital Signs: Temperature 97.4 , Pulse 66 , B/P 152 /74 , Respiratory Rate 18 , O2 SAT 94 , Nasal Cannula, O2 Flow Rate 4.0 . Vital Sign Comment: Latest Khoury Fall Score: 70 Fall Risk: High Risk Safety Measures: Call light Within Reach, Bed Alarm Zone 2, Side Rails Side Rails x3, Bed position Low and Locked. Fall Precautions: Yellow Socks Door Sign Patient Fall Education Report given to .
[2020-03-07 08:00] VITALS: BP 120/67
--- NOTE | 2020-03-07 08:00 | NUR ---
NURSE NOTES: Pt lying in bed w/bed in lowest position and call light within reach. Pt Syriac-speaking only w/minimal Uzbek; VSS; and in no apparent distress. IV site intact/asymptomatic w/IVF infusing and skin intact. Pt c/o pain; will administer pain med.
[2020-03-07] MEDS: dexAMETHasone 10mg/ml Inj IV SCH (09:02)
[2020-03-07] MEDS: Levemir Flexpen SUBQ SCH (09:06)
[2020-03-07] MEDS: Morphine Sulfate 2mg/ml Inj(IV/IM USE ONLY) IVP PRN ×3 (09:10→21:10)
--- NOTE | 2020-03-07 11:32 | Infectious Diseases Prog Note ---
Assessment/Plan Assessment/Plan antibiotics : ceftriaxone, azithromycin A 1. pneumonia on 4 liters O2 with saturation 95 % covid 19 pending 2. diabetes mellitus 3, hypertension P 1. continue ceftriaxone 2. d/c azithromycin 3. continue dexamethasone day 4 4. continue isolation Subjective ROS Limited/Unobtainable: Yes Allergies: Coded Allergies: No Known Allergies (Unverified , 03/04/20) Objective Last 24 Hour Vital Signs Date Time Temp Pulse Resp B/P (MAP) Pulse Ox O2 Delivery O2 Flow Rate FiO2 03/07/20 09:03 67 120/67 03/07/20 08:00 96.6 67 20 120/67 (84) 95 03/07/20 04:00 97.4 66 18 152/74 (100) 94 03/07/20 00:00 97.3 67 18 135/68 (90) 94 03/06/20 21:00 Nasal Cannula 4.0 03/06/20 20:00 98.2 66 18 136/70 (92) 93 03/06/20 16:00 96.8 61 18 138/73 (94) 92 03/06/20 12:00 96.8 63 18 152/77 (102) 92 Height (Feet): 5 Height (Inches): 3.00 Weight (Pounds): 120 Microbiology Date/Time Source Procedure Growth Status 03/04/20 23:20 Blood Blood Culture - Preliminary NO GROWTH AFTER 24 HOURS Resulted 03/04/20 23:05 Blood Blood Culture - Preliminary NO GROWTH AFTER 24 HOURS Resulted Laboratory Tests Test 03/06/20 16:12 03/06/20 21:00 03/07/20 06:00 03/07/20 06:36 POC Whole Blood Glucose 295 MG/DL (74-106) H 247 MG/DL (74-106) H 193 MG/DL (74-106) H Thyroid Stimulating Hormone (TSH) 0.557 uiU/mL (0.358-3.740) Current Medications Medications (Trade) Dose Ordered Sig/Oj Route PRN Reason Start Time Stop Time Status Last Admin Dose Admin Acetaminophen (Tylenol) 650 mg Q4H PRN ORAL Mild Pain (Pain Scale 1-3) 03/05/20 03:15 04/04/20 03:14 03/05/20 09:45 Albuterol Sulfate (Proventil MDI) 2 puff Q4H PRN INH Shortness of Breath 03/05/20 14:30 06/03/20 14:29 03/06/20 20:43 Amlodipine Besylate (Norvasc) 5 mg DAILY ORAL 03/05/20 09:00 04/04/20 08:59 03/07/20 09:03 Azithromycin (Zithromax) 250 mg Q24H ORAL 03/05/20 21:00 03/12/20 20:59 03/06/20 20:43 Ceftriaxone Sodium 1 gm/ Dextrose 55 ml @ 110 mls/hr Q24H IVPB 03/05/20 21:00 03/12/20 20:59 03/06/20 20:43 Dexamethasone Sodium Phosphate (Decadron 10mg/ ml Inj) 6 mg DAILY IV 03/06/20 09:00 03/13/20 12:00 03/07/20 09:02 Dextrose (Dextrose 50%) 25 ml Q30M PRN IV Hypoglycemia 03/05/20 05:00 06/03/20 04:59 Dextrose (Dextrose 50%) 50 ml Q30M PRN IV Hypoglycemia 03/05/20 05:00 06/03/20 04:59 Enoxaparin Sodium (Lovenox) 40 mg DAILY@2100 SUBQ 03/05/20 21:00 06/03/20 20:59 03/06/20 20:45 Famotidine (Pepcid) 20 mg DAILY ORAL 03/05/20 09:00 06/03/20 08:59 03/07/20 09:03 Guaifenesin/ Dextromethorphan (Robitussin DM Syrup) 10 ml Q4H PRN ORAL For Cough 03/05/20 03:15 06/03/20 03:14 Insulin Aspart (NovoLOG) BEFORE MEALS AND HS SUBQ 03/05/20 06:30 06/03/20 06:29 03/07/20 06:37 Insulin Detemir (Levemir) 25 units DAILY SUBQ 03/05/20 09:00 06/03/20 08:59 03/07/20 09:06 Morphine Sulfate (Morphine Sulfate) 1 mg Q4H PRN IVP Severe Pain (Pain Scale 7-10) 03/06/20 21:00 03/12/20 15:29 03/07/20 09:10 Paroxetine HCl (Paxil) 30 mg BEDTIME ORAL 03/05/20 21:00 04/04/20 20:59 03/06/20 20:43 Potassium Chloride/Sodium Chloride 1,000 ml @ 100 mls/hr Q10H IV 03/05/20 04:00 04/04/20 03:59 03/07/20 06:00 Kay Diaz MD Mar 07, 2020 11:32
[2020-03-07 12:00] VITALS: BP 158/85
--- NOTE | 2020-03-07 13:05 | NUR ---
CASE MANAGEMENT:REVIEW 03/07/20 SI: COVID PNA 96.6 67 20 120/67 95% ON 4L/NC GLUCOSE+193 IS: IV DECADRON QD IV ROCEPHIN Q24 IVF+KCL@100/HR PAXIL PO QHS LOVENOX SQ QD NORVASC PO QD LEVEMIR SQ QD IV MORPHINE Q4HRS PRN : MED/SURG 4 [facility] DCP: FROM HOME
[2020-03-07 16:00] VITALS: BP 140/88
--- NOTE | 2020-03-07 16:07 | General Progress Note ---
Subjective ROS Limited/Unobtainable: No Constitutional: Reports: malaise, weakness HEENT: Reports: no symptoms Cardiovascular: Reports: no symptoms Respiratory: Reports: cough, shortness of breath Gastrointestinal/Abdominal: Reports: no symptoms Genitourinary: Reports: no symptoms Neurologic/Psychiatric: Reports: anxiety Endocrine: Reports: no symptoms Hematologic/Lymphatic: Reports: anemia Allergies: Coded Allergies: No Known Allergies (Unverified , 03/04/20) All Systems: reviewed and negative except above Subjective no events. c/o cough and sob. no fever or chills. stable sob. on iv abx. covid still pending. Objective Last 24 Hour Vital Signs Date Time Temp Pulse Resp B/P (MAP) Pulse Ox O2 Delivery O2 Flow Rate FiO2 03/07/20 12:00 96.2 63 20 158/85 (109) 96 03/07/20 09:03 67 120/67 03/07/20 09:00 Nasal Cannula 4.0 03/07/20 08:00 96.6 67 20 120/67 (84) 95 03/07/20 04:00 97.4 66 18 152/74 (100) 94 03/07/20 00:00 97.3 67 18 135/68 (90) 94 03/06/20 21:00 Nasal Cannula 4.0 03/06/20 20:00 98.2 66 18 136/70 (92) 93 Intake and Output 03/06/20 03/07/20 19:00 07:00 Intake Total 460 ml 880 ml Balance 460 ml 880 ml Intake Oral 360 ml 80 ml IV Total 100 ml 800 ml # Voids 2 # Bowel Movements 1 Laboratory Tests 03/06/20 16:12: POC Whole Blood Glucose 295H 03/06/20 21:00: POC Whole Blood Glucose 247H 03/07/20 06:00: Thyroid Stimulating Hormone (TSH) 0.557 03/07/20 06:36: POC Whole Blood Glucose 193H Height (Feet): 5 Height (Inches): 3.00 Weight (Pounds): 120 General Appearance: WD/WN, alert, agitated EENT: normal ENT inspection Neck: normal alignment, supple Cardiovascular: normal rate, regular rhythm Respiratory/Chest: chest wall non-tender, lungs clear, normal breath sounds, no respiratory distress, no accessory muscle use Abdomen: normal bowel sounds, non tender, soft, no organomegaly, no mass Edema: no edema noted Arm (L), no edema noted Arm (R), no edema noted Leg (L), no edema noted Leg (R) 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, alert, oriented x 3, responsive Skin: normal pigmentation Assessment/Plan Problem List: (1) Acute respiratory failure due to COVID-19 ICD Codes: U07.1 - COVID-19; J96.00 - Acute respiratory failure, unspecified whether with hypoxia or hypercapnia SNOMED: 132101370, 47366571 (2) Pneumonia due to COVID-19 virus ICD Codes: U07.1 - COVID-19; J12.82 - Pneumonia due to coronavirus disease 2019 SNOMED: 994313845336665233 (3) Hypokalemia ICD Codes: E87.6 - Hypokalemia; J96.00 - Acute respiratory failure, unspecified whether with hypoxia or hypercapnia SNOMED: 77771871, 11421216 (4) Hyperglycemia due to type 2 diabetes mellitus ICD Codes: E11.65 - Type 2 diabetes mellitus with hyperglycemia; J96.00 - Acute respiratory failure, unspecified whether with hypoxia or hypercapnia SNOMED: 398459032478028, 57357540 Qualifiers: Qualified Codes: E11.65 - Type 2 diabetes mellitus with hyperglycemia Status: stable Assessment/Plan: cont current rx monitor temps decadron await covid pcr ivf o2 resp rx monitor lytes dvt/stress ulcer prophylaxis Sanya Poole MD Mar 07, 2020 16:07
--- NOTE | 2020-03-07 17:09 | Pulmonology Progress Note ---
Subjective ROS Limited/Unobtainable: No Allergies: Coded Allergies: No Known Allergies (Unverified , 03/04/20) All Systems: reviewed and negative except above Subjective care noted and reviewed on isolation Objective Last 24 Hour Vital Signs Date Time Temp Pulse Resp B/P (MAP) Pulse Ox O2 Delivery O2 Flow Rate FiO2 03/07/20 16:00 96.8 66 20 140/88 (105) 96 03/07/20 12:00 96.2 63 20 158/85 (109) 96 03/07/20 09:03 67 120/67 03/07/20 09:00 Nasal Cannula 4.0 03/07/20 08:00 96.6 67 20 120/67 (84) 95 03/07/20 04:00 97.4 66 18 152/74 (100) 94 03/07/20 00:00 97.3 67 18 135/68 (90) 94 03/06/20 21:00 Nasal Cannula 4.0 03/06/20 20:00 98.2 66 18 136/70 (92) 93 Intake and Output 03/06/20 03/07/20 19:00 07:00 Intake Total 460 ml 880 ml Balance 460 ml 880 ml Intake Oral 360 ml 80 ml IV Total 100 ml 800 ml # Voids 2 # Bowel Movements 1 Objective deferred due to COVID Microbiology Date/Time Source Procedure Growth Status 03/04/20 23:20 Blood Blood Culture - Preliminary NO GROWTH AFTER 48 HOURS Resulted 03/04/20 23:05 Blood Blood Culture - Preliminary NO GROWTH AFTER 48 HOURS Resulted Laboratory Tests 03/06/20 21:00: POC Whole Blood Glucose 247H 03/07/20 06:00: Thyroid Stimulating Hormone (TSH) 0.557 03/07/20 06:36: POC Whole Blood Glucose 193H Current Medications Medications (Trade) Dose Ordered Sig/Oj Route PRN Reason Start Time Stop Time Status Last Admin Dose Admin Acetaminophen (Tylenol) 650 mg Q4H PRN ORAL Mild Pain (Pain Scale 1-3) 03/05/20 03:15 04/04/20 03:14 03/05/20 09:45 Albuterol Sulfate (Proventil MDI) 2 puff Q4H PRN INH Shortness of Breath 03/05/20 14:30 06/03/20 14:29 03/06/20 20:43 Amlodipine Besylate (Norvasc) 5 mg DAILY ORAL 03/05/20 09:00 04/04/20 08:59 03/07/20 09:03 Ceftriaxone Sodium 1 gm/ Dextrose 55 ml @ 110 mls/hr Q24H IVPB 03/05/20 21:00 03/12/20 20:59 03/06/20 20:43 Dexamethasone Sodium Phosphate (Decadron 10mg/ ml Inj) 6 mg DAILY IV 03/06/20 09:00 03/13/20 12:00 03/07/20 09:02 Dextrose (Dextrose 50%) 25 ml Q30M PRN IV Hypoglycemia 03/05/20 05:00 06/03/20 04:59 Dextrose (Dextrose 50%) 50 ml Q30M PRN IV Hypoglycemia 03/05/20 05:00 06/03/20 04:59 Enoxaparin Sodium (Lovenox) 40 mg DAILY@2100 SUBQ 03/05/20 21:00 06/03/20 20:59 03/06/20 20:45 Famotidine (Pepcid) 20 mg DAILY ORAL 03/05/20 09:00 06/03/20 08:59 03/07/20 09:03 Guaifenesin/ Dextromethorphan (Robitussin DM Syrup) 10 ml Q4H PRN ORAL For Cough 03/05/20 03:15 06/03/20 03:14 Insulin Aspart (NovoLOG) BEFORE MEALS AND HS SUBQ 03/05/20 06:30 06/03/20 06:29 03/07/20 06:37 Insulin Detemir (Levemir) 25 units DAILY SUBQ 03/05/20 09:00 06/03/20 08:59 03/07/20 09:06 Morphine Sulfate (Morphine Sulfate) 1 mg Q4H PRN IVP Severe Pain (Pain Scale 7-10) 03/06/20 21:00 03/12/20 15:29 03/07/20 09:10 Paroxetine HCl (Paxil) 30 mg BEDTIME ORAL 03/05/20 21:00 04/04/20 20:59 03/06/20 20:43 Potassium Chloride/Sodium Chloride 1,000 ml @ 100 mls/hr Q10H IV 03/05/20 04:00 04/04/20 03:59 03/07/20 06:00 Assessment/Plan Assessment/Plan Impression: Possible Covid19 Pneumonia - Covid test pending Hypoxic Respiratory Failure Hypertension Diabetes Plan: - IV steroids/AB per ID - Await COVID PCR.- still pending - Oxygen as needed - monitor for change and respiratory deterioration - Monitor labs impression, plan, and exam edited and reviewed in detail care discussed with Anthony Tarango MD Mar 07, 2020 17:09
--- NOTE | 2020-03-07 19:10 | NUR ---
NURSE HAND-OFF: Important Events on Shift: Pt requesting morphine for pain several times today; no significant events this morning. Patient Status: Stable Diet: CCHO (low) mech, soft-chopped Pending Orders: None Pending Results/Labs: None Pending MD notification:None Latest Vital Signs: Temperature 96.8 , Pulse 66 , B/P 140 /88 , Respiratory Rate 20 , O2 SAT 96 , Nasal Cannula, O2 Flow Rate 4.0 . Vital Sign Comment: Stable Latest Khoury Fall Score: 70 Fall Risk: High Risk Safety Measures: Call light Within Reach, Bed Alarm Zone 2, Side Rails Side Rails x3, Bed position Low and Locked. Fall Precautions: Yellow Socks Door Sign Patient Fall Education Report given to SUNSHINE Bean.
[2020-03-07 20:01] VITALS: BP 118/65
--- NOTE | 2020-03-07 20:20 | NUR ---
NURSE NOTES: Received patient awake, alert, lying in bed, on O2 at 4L/min, complaining of pain in the head but her prn medication is not due yet.
[2020-03-07] MEDS: PARoxetine HCL 10mg tab ORAL SCH (21:07)
[2020-03-07] MEDS: cefTRIAXone 1 GM in D5W 55 ML IVPB SCH (21:07)
[2020-03-07] MEDS: Enoxaparin 40mg Inj SUBQ SCH (21:08)
[2020-03-08 00:08] VITALS: BP 153/83
--- NOTE | 2020-03-08 00:48 | Cardiology Progress Note ---
Subjective DATE OF SERVICE: Mar 07, 2020 Weak but more alert Low temperature resolved Still SOB at times No CP Remains on O2 suppl by nasal cannula Covid 19 swab still pending TSH normal Objective Last 24 Hour Vital Signs Date Time Temp Pulse Resp B/P (MAP) Pulse Ox O2 Delivery O2 Flow Rate FiO2 03/08/20 00:08 96.8 62 20 153/83 (106) 92 03/07/20 21:40 96.3 03/07/20 20:09 Nasal Cannula 4.0 03/07/20 20:01 96.3 70 22 118/65 (82) 92 03/07/20 16:00 96.8 66 20 140/88 (105) 96 03/07/20 12:00 96.2 63 20 158/85 (109) 96 03/07/20 09:03 67 120/67 03/07/20 09:00 Nasal Cannula 4.0 03/07/20 08:00 96.6 67 20 120/67 (84) 95 03/07/20 04:00 97.4 66 18 152/74 (100) 94 ROS: unchanged from 03/04/20 HEENT: normal ENT inspection RHYTHM: NSR, PACs LUNGS: bilateral rhonchi CARDIAC: normal rate, regular rhythm, normal S1 and S2, gallop/S4 ABDOMEN: normal bowel sounds, non tender, soft, no organomegaly EXTREMITIES: non-tender, no calf tenderness, trace edema Laboratory Tests Test 03/07/20 06:00 03/07/20 06:36 03/07/20 17:14 03/07/20 19:46 Thyroid Stimulating Hormone (TSH) 0.557 uiU/mL (0.358-3.740) POC Whole Blood Glucose 193 MG/DL (74-106) H Pending 379 MG/DL (74-106) H Assessment/Plan Assessment/Plan Pneumonia Hypoxia Hypothermia resolved Possible Covid 19 PNA Lactic acidosis resolving Hypertension/HHD Acute/chronic diastolic CHF IRDM with elev glucose on steroids IVF Warming measures O2 suppl Steroids Respiratory support F/U cultures and Covid swab Antimicrobials per ID DVT prophyl Advance insulin dose Zaid Rosado MD Mar 08, 2020 00:48
[2020-03-08] MEDS: NS w/KCl 20mEq 1000ml 1,000 ML IV SCH ×3 (02:13→21:14)
[2020-03-08] MEDS: Morphine Sulfate 2mg/ml Inj(IV/IM USE ONLY) IVP PRN ×4 (02:13→21:25)
[2020-03-08 04:16] VITALS: BP 146/80
[2020-03-08] MEDS: NovoLOG Insulin Flexpen SUBQ SCH ×4 (06:21→21:24)
[2020-03-08 06:46] LABS: BASOPHILS % (AUTO) 2.2 % (0.0-2.0); EOSINOPHILS % (AUTO) 0.2 % (0.0-3.0); HEMATOCRIT 40.7 % (37.0-47.0); HEMOGLOBIN 13.8 G/DL (12.0-16.0); LYMPHOCYTES % (AUTO) 12.5 % (20.0-45.0); MEAN CORPUSCULAR VOLUME 86 FL (80-99); MONOCYTES % (AUTO) 3.4 % (1.0-10.0); NEUTROPHILS % (AUTO) 81.7 % (45.0-75.0); PLATELET COUNT 378 K/UL (150-450); RED BLOOD COUNT 4.73 M/UL (4.20-5.40); RED CELL DISTRIBUTION WIDTH 11.6 % (11.6-14.8); WHITE BLOOD COUNT 7.1 K/UL (4.8-10.8)
[2020-03-08 06:58] LABS: ALANINE AMINOTRANSFERASE 13 U/L (12-78); ALBUMIN 2.4 G/DL (3.4-5.0); ALBUMIN/GLOBULIN RATIO 0.6 (1.0-2.7); ALKALINE PHOSPHATASE 74 U/L (46-116); ANION GAP 5 mmol/L (5-15); ASPARTATE AMINO TRANSFERASE 21 U/L (15-37); BILIRUBIN,TOTAL 0.3 MG/DL (0.2-1.0); BLOOD UREA NITROGEN 9 mg/dL (7-18); CALCIUM 8.9 MG/DL (8.5-10.1); CARBON DIOXIDE 32 MMOL/L (21-32); CHLORIDE 102 MMOL/L (98-107); CREATININE 0.5 MG/DL (0.55-1.30); POTASSIUM 3.7 MMOL/L (3.5-5.1); SODIUM 139 MMOL/L (136-145)
--- NOTE | 2020-03-08 07:10 | NUR ---
NURSE HAND-OFF: Important Events on Shift:[] Patient Status: [] Diet: [] Pending Orders: [] Pending Results/Labs:[] Pending MD notification:[] Latest Vital Signs: Temperature 96.6 , Pulse 60 , B/P 146 /80 , Respiratory Rate 20 , O2 SAT 98 , Nasal Cannula, O2 Flow Rate 4.0 . Vital Sign Comment: [] Latest Khoury Fall Score: 70 Fall Risk: High Risk Safety Measures: Call light Within Reach, Bed Alarm Zone 2, Side Rails Side Rails x3, Bed position Low and Locked. Fall Precautions: Yellow Socks Door Sign Patient Fall Education Report given to []. Addendum: 03/08/20 at 0713 by HARDY CHANDLER RN Report given to SUNSHINE Seo
--- NOTE | 2020-03-08 07:35 | NUR ---
NURSE NOTES: RN received patient in bed aaoX4, no s/s of respiratory distress on 4L of NC. Patient c/o headache but refused pain medication. Patient ate all of her breakfast in high thomas position. Bed in lowest position and locked, bed alarm on. Call light within reach. Care of plan communicated and patient verbalized understanding. Will continue to monitor.
[2020-03-08 08:00] VITALS: BP 113/58
--- NOTE | 2020-03-08 08:44 | Pulmonology Progress Note ---
Subjective ROS Limited/Unobtainable: No Allergies: Coded Allergies: No Known Allergies (Unverified , 03/04/20) All Systems: reviewed and negative except above Subjective care noted and reviewed on isolation Objective Last 24 Hour Vital Signs Date Time Temp Pulse Resp B/P (MAP) Pulse Ox O2 Delivery O2 Flow Rate FiO2 03/08/20 08:00 97.4 78 19 113/58 (76) 98 03/08/20 06:51 96.6 03/08/20 04:16 96.6 60 20 146/80 (102) 98 03/08/20 02:42 96.8 03/08/20 00:08 96.8 62 20 153/83 (106) 92 03/07/20 21:40 96.3 03/07/20 20:09 Nasal Cannula 4.0 03/07/20 20:01 96.3 70 22 118/65 (82) 92 03/07/20 16:00 96.8 66 20 140/88 (105) 96 03/07/20 12:00 96.2 63 20 158/85 (109) 96 03/07/20 09:03 67 120/67 03/07/20 09:00 Nasal Cannula 4.0 Intake and Output 03/07/20 03/08/20 19:00 07:00 Intake Total 700 ml 1155 ml Balance 700 ml 1155 ml Intake Oral 600 ml IV Total 100 ml 1155 ml # Voids 4 3 Objective deferred due to COVID Laboratory Tests 03/07/20 17:14: POC Whole Blood Glucose [Pending] 03/07/20 19:46: POC Whole Blood Glucose 379H 03/08/20 06:00: White Blood Count 7.1, Red Blood Count 4.73, Hemoglobin 13.8, Hematocrit 40.7, Mean Corpuscular Volume 86, Mean Corpuscular Hemoglobin 29.2, Mean Corpuscular Hemoglobin Concent 33.9, Red Cell Distribution Width 11.6, Platelet Count 378, Mean Platelet Volume 5.3L, Neutrophils (%) (Auto) 81.7H, Lymphocytes (%) (Auto) 12.5L, Monocytes (%) (Auto) 3.4, Eosinophils (%) (Auto) 0.2, Basophils (%) (Auto) 2.2H, Sodium Level 139, Potassium Level 3.7, Chloride Level 102, Carbon Dioxide Level 32, Anion Gap 5, Blood Urea Nitrogen 9, Creatinine 0.5L, Estimat Glomerular Filtration Rate > 60, Glucose Level 101, Calcium Level 8.9, Magnesium Level 1.9, Total Bilirubin 0.3, Aspartate Amino Transf (AST/SGOT) 21, Alanine Aminotransferase (ALT/SGPT) 13, Alkaline Phosphatase 74, Pro-B-Type Natriuretic Peptide 257H, Total Protein 6.6, Albumin 2.4L, Globulin 4.2, Albumin/Globulin Ratio 0.6L Current Medications Medications (Trade) Dose Ordered Sig/Oj Route PRN Reason Start Time Stop Time Status Last Admin Dose Admin Acetaminophen (Tylenol) 650 mg Q4H PRN ORAL Mild Pain (Pain Scale 1-3) 03/05/20 03:15 04/04/20 03:14 03/05/20 09:45 Albuterol Sulfate (Proventil MDI) 2 puff Q4H PRN INH Shortness of Breath 03/05/20 14:30 06/03/20 14:29 03/06/20 20:43 Amlodipine Besylate (Norvasc) 5 mg DAILY ORAL 03/05/20 09:00 04/04/20 08:59 03/07/20 09:03 Ceftriaxone Sodium 1 gm/ Dextrose 55 ml @ 110 mls/hr Q24H IVPB 03/05/20 21:00 03/12/20 20:59 03/07/20 21:07 Dexamethasone Sodium Phosphate (Decadron 10mg/ ml Inj) 6 mg DAILY IV 03/06/20 09:00 03/13/20 12:00 03/07/20 09:02 Dextrose (Dextrose 50%) 25 ml Q30M PRN IV Hypoglycemia 03/05/20 05:00 06/03/20 04:59 Dextrose (Dextrose 50%) 50 ml Q30M PRN IV Hypoglycemia 03/05/20 05:00 06/03/20 04:59 Enoxaparin Sodium (Lovenox) 40 mg DAILY@2100 SUBQ 03/05/20 21:00 06/03/20 20:59 03/07/20 21:08 Famotidine (Pepcid) 20 mg DAILY ORAL 03/05/20 09:00 06/03/20 08:59 03/07/20 09:03 Guaifenesin/ Dextromethorphan (Robitussin DM Syrup) 10 ml Q4H PRN ORAL For Cough 03/05/20 03:15 06/03/20 03:14 Insulin Aspart (NovoLOG) BEFORE MEALS AND HS SUBQ 03/05/20 06:30 06/03/20 06:29 03/07/20 21:09 Insulin Detemir (Levemir) 30 units DAILY SUBQ 03/08/20 09:00 06/03/20 08:59 Morphine Sulfate (Morphine Sulfate) 1 mg Q4H PRN IVP Severe Pain (Pain Scale 7-10) 03/06/20 21:00 03/12/20 15:29 03/08/20 06:21 Ondansetron HCl (Zofran) 4 mg Q4H PRN IVP Nausea & Vomiting 03/08/20 04:45 04/07/20 04:44 Paroxetine HCl (Paxil) 30 mg BEDTIME ORAL 03/05/20 21:00 04/04/20 20:59 03/07/20 21:07 Potassium Chloride/Sodium Chloride 1,000 ml @ 100 mls/hr Q10H IV 03/05/20 04:00 04/04/20 03:59 03/08/20 02:13 Assessment/Plan Assessment/Plan Impression: Possible Covid19 Pneumonia - Covid test pending Hypoxic Respiratory Failure Hypertension Diabetes Plan: - IV steroids/AB per ID - Await COVID PCR.- still pending - Oxygen as needed - monitor for change and respiratory deterioration - Monitor labs impression, plan, and exam edited and reviewed in detail care discussed with Anthony Tarango MD Mar 08, 2020 08:44
--- NOTE | 2020-03-08 08:58 | General Progress Note ---
Subjective ROS Limited/Unobtainable: No Constitutional: Reports: malaise, weakness HEENT: Reports: no symptoms Cardiovascular: Reports: no symptoms Respiratory: Reports: cough, shortness of breath Gastrointestinal/Abdominal: Reports: no symptoms Genitourinary: Reports: no symptoms Neurologic/Psychiatric: Reports: anxiety Endocrine: Reports: no symptoms Hematologic/Lymphatic: Reports: no symptoms Allergies: Coded Allergies: No Known Allergies (Unverified , 03/04/20) All Systems: reviewed and negative except above Subjective no events. c/o cough and sob. no fever or chills. stable sob. on iv abx. covid still pending. c/o generalized pain. asking for iv morphine. no fevers. labs noted. Objective Last 24 Hour Vital Signs Date Time Temp Pulse Resp B/P (MAP) Pulse Ox O2 Delivery O2 Flow Rate FiO2 03/08/20 08:00 97.4 78 19 113/58 (76) 98 03/08/20 06:51 96.6 03/08/20 04:16 96.6 60 20 146/80 (102) 98 03/08/20 02:42 96.8 03/08/20 00:08 96.8 62 20 153/83 (106) 92 03/07/20 21:40 96.3 03/07/20 20:09 Nasal Cannula 4.0 03/07/20 20:01 96.3 70 22 118/65 (82) 92 03/07/20 16:00 96.8 66 20 140/88 (105) 96 03/07/20 12:00 96.2 63 20 158/85 (109) 96 03/07/20 09:03 67 120/67 03/07/20 09:00 Nasal Cannula 4.0 Intake and Output 03/07/20 03/08/20 19:00 07:00 Intake Total 700 ml 1155 ml Balance 700 ml 1155 ml Intake Oral 600 ml IV Total 100 ml 1155 ml # Voids 4 3 Laboratory Tests 03/07/20 17:14: POC Whole Blood Glucose [Pending] 03/07/20 19:46: POC Whole Blood Glucose 379H 03/08/20 06:00: White Blood Count 7.1, Red Blood Count 4.73, Hemoglobin 13.8, Hematocrit 40.7, Mean Corpuscular Volume 86, Mean Corpuscular Hemoglobin 29.2, Mean Corpuscular Hemoglobin Concent 33.9, Red Cell Distribution Width 11.6, Platelet Count 378, Mean Platelet Volume 5.3L, Neutrophils (%) (Auto) 81.7H, Lymphocytes (%) (Auto) 12.5L, Monocytes (%) (Auto) 3.4, Eosinophils (%) (Auto) 0.2, Basophils (%) (Auto) 2.2H, Sodium Level 139, Potassium Level 3.7, Chloride Level 102, Carbon Dioxide Level 32, Anion Gap 5, Blood Urea Nitrogen 9, Creatinine 0.5L, Estimat Glomerular Filtration Rate > 60, Glucose Level 101, Calcium Level 8.9, Magnesium Level 1.9, Total Bilirubin 0.3, Aspartate Amino Transf (AST/SGOT) 21, Alanine Aminotransferase (ALT/SGPT) 13, Alkaline Phosphatase 74, Pro-B-Type Natriuretic Peptide 257H, Total Protein 6.6, Albumin 2.4L, Globulin 4.2, Albumin/Globulin Ra nataliya 0.6L Height (Feet): 5 Height (Inches): 3.00 Weight (Pounds): 120 Objective General Appearance: WD/WN, alert, agitated/anxious EENT: normal ENT inspection Neck: normal alignment, supple Cardiovascular: normal rate, regular rhythm Respiratory/Chest: chest wall non-tender, lungs clear, normal breath sounds, no respiratory distress, no accessory muscle use Abdomen: normal bowel sounds, non tender, soft, no organomegaly, no mass Edema: no edema noted Arm (L), no edema noted Arm (R), no edema noted Leg (L), no edema noted Leg (R) Neurologic: bacteriologist industrial II-XII grossly normal, alert, oriented x 3, responsive Skin: normal pigmentation Assessment/Plan Problem List: (1) Acute respiratory failure due to COVID-19 ICD Codes: U07.1 - COVID-19; J96.00 - Acute respiratory failure, unspecified whether with hypoxia or hypercapnia SNOMED: 902953768, 43857539 (2) Pneumonia due to COVID-19 virus ICD Codes: U07.1 - COVID-19; J12.82 - Pneumonia due to coronavirus disease 2019 SNOMED: 568058772669431065 (3) Hypokalemia ICD Codes: E87.6 - Hypokalemia; J96.00 - Acute respiratory failure, unspecified whether with hypoxia or hypercapnia SNOMED: 15891075, 61729056 (4) Hyperglycemia due to type 2 diabetes mellitus ICD Codes: E11.65 - Type 2 diabetes mellitus with hyperglycemia; J96.00 - Acute respiratory failure, unspecified whether with hypoxia or hypercapnia SNOMED: 597282001417262, 13028354 Qualifiers: Qualified Codes: E11.65 - Type 2 diabetes mellitus with hyperglycemia Status: stable Assessment/Plan: cont current rx monitor temps decadron/steroids await covid pcr- per er positive on the outside pain rx as needed ivf o2 resp rx monitor lytes dvt/stress ulcer prophylaxis Sanya Poole MD Mar 08, 2020 08:58
[2020-03-08] MEDS: Levemir Flexpen SUBQ SCH (09:29)
[2020-03-08] MEDS: dexAMETHasone 10mg/ml Inj IV SCH (09:30)
--- NOTE | 2020-03-08 09:42 | NUR ---
ACTIONSCRIPT DEVELOPER NOTE SW attempted to evaluate home safety. Pt is uncooperative irritable, refusing to speak to this SW, stating that she does not want to talk due to headache. SW was unable to verify/obtain any information. Per chart review, pt resides alone and there is no emergency contact. SW attempted to obtain emergency contact but pt refused.
--- NOTE | 2020-03-08 09:47 | NUR ---
CASE MANAGEMENT:REVIEW 03/08/20 SI: COVID PNA 97.4 78 19 113/58 98% ON 4L/NC GLUCOSE+209 IS: IV DECADRON QD IV ROCEPHIN Q24 IVF+KCL@100/HR PAXIL PO QHS LOVENOX SQ QD NORVASC PO QD LEVEMIR SQ QD IV MORPHINE Q4HRS PRN : MED/SURG 4 EAST DCP: FROM HOME PLAN: TITRATE OXYGEN
[2020-03-08 12:00] VITALS: BP 119/63
--- NOTE | 2020-03-08 12:00 | NUR ---
NURSE NOTES: RN titrated down the O2 to 3L from 4L, patient satting at 91% so RN titrated it back to 4L. Will continue to monitor.
--- NOTE | 2020-03-08 12:07 | NUR ---
NURSE NOTES: Patient c/o of dry nose and asked for humidifier. RN notified Dr. Camp and waiting for further order.
--- NOTE | 2020-03-08 12:20 | Infectious Diseases Prog Note ---
Assessment/Plan Assessment/Plan A 1. pneumonia COVID19 pending 2. diabetes mellitus 3, hypertension 4. Hypoxemia P 1. continue ceftriaxone 2.. continue dexamethasone day 5 4. continue isolation Subjective ROS Limited/Unobtainable: Yes HEENT: Reports: other - headache Respiratory: Reports: dry cough Allergies: Coded Allergies: No Known Allergies (Unverified , 03/04/20) Objective Last 24 Hour Vital Signs Date Time Temp Pulse Resp B/P (MAP) Pulse Ox O2 Delivery O2 Flow Rate FiO2 03/08/20 09:31 78 113/58 03/08/20 09:00 Nasal Cannula 4.0 03/08/20 08:00 97.4 78 19 113/58 (76) 98 03/08/20 06:51 96.6 03/08/20 04:16 96.6 60 20 146/80 (102) 98 03/08/20 02:42 96.8 03/08/20 00:08 96.8 62 20 153/83 (106) 92 03/07/20 21:40 96.3 03/07/20 20:09 Nasal Cannula 4.0 03/07/20 20:01 96.3 70 22 118/65 (82) 92 03/07/20 16:00 96.8 66 20 140/88 (105) 96 Height (Feet): 5 Height (Inches): 3.00 Weight (Pounds): 120 General Appearance: no acute distress HEENT: mucous membranes moist Respiratory/Chest: no respiratory distress, other - O2 by nasal cannula Cardiovascular: normal rate Abdomen: soft, non tender Extremities: no edema Neurologic/Psychiatric: alert, responsive Laboratory Tests Test 03/07/20 17:14 03/07/20 19:46 03/08/20 06:00 03/08/20 09:24 POC Whole Blood Glucose Pending 379 MG/DL (74-106) H 209 MG/DL (74-106) H White Blood Count 7.1 K/UL (4.8-10.8) Red Blood Count 4.73 M/UL (4.20-5.40) Hemoglobin 13.8 G/DL (12.0-16.0) Hematocrit 40.7 % (37.0-47.0) Mean Corpuscular Volume 86 FL (80-99) Mean Corpuscular Hemoglobin 29.2 PG (27.0-31.0) Mean Corpuscular Hemoglobin Concent 33.9 G/DL (32.0-36.0) Red Cell Distribution Width 11.6 % (11.6-14.8) Platelet Count 378 K/UL (150-450) Mean Platelet Volume 5.3 FL (6.5-10.1) L Neutrophils (%) (Auto) 81.7 % (45.0-75.0) H Lymphocytes (%) (Auto) 12.5 % (20.0-45.0) L Monocytes (%) (Auto) 3.4 % (1.0-10.0) Eosinophils (%) (Auto) 0.2 % (0.0-3.0) Basophils (%) (Auto) 2.2 % (0.0-2.0) H Sodium Level 139 MMOL/L (136-145) Potassium Level 3.7 MMOL/L (3.5-5.1) Chloride Level 102 MMOL/L (98-107) Carbon Dioxide Level 32 MMOL/L (21-32) Anion Gap 5 mmol/L (5-15) Blood Urea Nitrogen 9 mg/dL (7-18) Creatinine 0.5 MG/DL (0.55-1.30) L Estimat Glomerular Filtration Rate > 60 mL/min (>60) Glucose Level 101 MG/DL (74-106) Calcium Level 8.9 MG/DL (8.5-10.1) Magnesium Level 1.9 MG/DL (1.8-2.4) Total Bilirubin 0.3 MG/DL (0.2-1.0) Aspartate Amino Transf (AST/SGOT) 21 U/L (15-37) Alanine Aminotransferase (ALT/SGPT) 13 U/L (12-78) Alkaline Phosphatase 74 U/L (46-116) Pro-B-Type Natriuretic Peptide 257 pg/mL (0-125) H Total Protein 6.6 G/DL (6.4-8.2) Albumin 2.4 G/DL (3.4-5.0) L Globulin 4.2 g/dL Albumin/Globulin Ratio 0.6 (1.0-2.7) L Test 03/08/20 11:43 POC Whole Blood Glucose 285 MG/DL (74-106) H Current Medications Medications (Trade) Dose Ordered Sig/Oj Route PRN Reason Start Time Stop Time Status Last Admin Dose Admin Acetaminophen (Tylenol) 650 mg Q4H PRN ORAL Mild Pain (Pain Scale 1-3) 03/05/20 03:15 04/04/20 03:14 03/05/20 09:45 Albuterol Sulfate (Proventil MDI) 2 puff Q4H PRN INH Shortness of Breath 03/05/20 14:30 06/03/20 14:29 03/06/20 20:43 Amlodipine Besylate (Norvasc) 5 mg DAILY ORAL 03/05/20 09:00 04/04/20 08:59 03/08/20 09:31 Ceftriaxone Sodium 1 gm/ Dextrose 55 ml @ 110 mls/hr Q24H IVPB 03/05/20 21:00 03/12/20 20:59 03/07/20 21:07 Dexamethasone Sodium Phosphate (Decadron 10mg/ ml Inj) 6 mg DAILY IV 03/06/20 09:00 03/13/20 12:00 03/08/20 09:30 Dextrose (Dextrose 50%) 25 ml Q30M PRN IV Hypoglycemia 03/05/20 05:00 06/03/20 04:59 Dextrose (Dextrose 50%) 50 ml Q30M PRN IV Hypoglycemia 03/05/20 05:00 06/03/20 04:59 Enoxaparin Sodium (Lovenox) 40 mg DAILY@2100 SUBQ 03/05/20 21:00 06/03/20 20:59 03/07/20 21:08 Famotidine (Pepcid) 20 mg DAILY ORAL 03/05/20 09:00 06/03/20 08:59 03/08/20 09:33 Guaifenesin/ Dextromethorphan (Robitussin DM Syrup) 10 ml Q4H PRN ORAL For Cough 03/05/20 03:15 06/03/20 03:14 Insulin Aspart (NovoLOG) BEFORE MEALS AND HS SUBQ 03/05/20 06:30 06/03/20 06:29 03/08/20 11:49 Insulin Detemir (Levemir) 30 units DAILY SUBQ 03/08/20 09:00 06/03/20 08:59 03/08/20 09:29 Morphine Sulfate (Morphine Sulfate) 1 mg Q4H PRN IVP Severe Pain (Pain Scale 7-10) 03/06/20 21:00 03/12/20 15:29 03/08/20 06:21 Ondansetron HCl (Zofran) 4 mg Q4H PRN IVP Nausea & Vomiting 03/08/20 04:45 04/07/20 04:44 Paroxetine HCl (Paxil) 30 mg BEDTIME ORAL 03/05/20 21:00 04/04/20 20:59 03/07/20 21:07 Potassium Chloride/Sodium Chloride 1,000 ml @ 100 mls/hr Q10H IV 03/05/20 04:00 04/04/20 03:59 03/08/20 11:50 Lele Schuster MD Mar 08, 2020 12:20
--- NOTE | 2020-03-08 12:28 | NUR ---
NURSE NOTES: advertising inserter called lab to follow covid test result done on 03/06/20. Per lab,specimen was sent.
--- NOTE | 2020-03-08 12:28 | NUR ---
NURSE NOTES: RN notified Bethanie RT for humidifier. She will come and install the device. Will continue to monitor.
[2020-03-08 16:00] VITALS: BP 124/87
--- NOTE | 2020-03-08 16:00 | NUR ---
NURSE NOTES: Received call from Mary from lab. She asked to re swab the patient for covid stating She received call from [employer](company that runs covid regular swab),the liquid leaked so they were not able to run the covid swab from 03/06/20. RN received another covid test order form Dr. Schuster. Covid rapid test is not available @ this time per lab and boiler house mechanic. Covid PCR swab done and sent to lab.[facility] is aware.
--- NOTE | 2020-03-08 18:43 | NUR ---
NURSE NOTES: Patient is hyperglycemic. BC level of 412 at 4:30 pm and 420 at 6:30 pm after dinner. Patient states she has been eating more lately. RN educated patient to eat only what the hospital offers and not to eat food given from other sources. Patient is asymptomatic, aao X4, vitals stable. RN notified Dr. Poole and waiting for further orders.
--- NOTE | 2020-03-08 19:10 | NUR ---
NURSE HAND-OFF: Important Events on Shift:hyperglycemia (Dr. Poole Notified), remind the patient to deep breathe Patient Status: stable, asymptomatic Diet: CCHO low; mechanical soft, finely chopped Pending Orders: Notify Dr. Diaz of PCR result Pending Results/Labs:PCR Pending MD notification: Latest Vital Signs: Temperature 98.8 , Pulse 74 , B/P 124 /87 , Respiratory Rate 19 , O2 SAT 92 , Nasal Cannula, O2 Flow Rate 4.0 . Vital Sign Comment: stable Latest Khoury Fall Score: 70 Fall Risk: High Risk Safety Measures: Call light Within Reach, Bed Alarm Zone 2, Side Rails Side Rails x3, Bed position Low and Locked. Fall Precautions: Yellow Socks Door Sign Patient Fall Education Report given to
[2020-03-08] MEDS ORDERED: NovoLOG Insulin Flexpen SUBQ SCH (19:50)
--- NOTE | 2020-03-08 20:10 | NUR ---
NURSE NOTES: RN received the order to give Novolog [address] Poole. RN verified and carried out the order. Patient asymptomatic.
[2020-03-08 20:25] VITALS: BP 136/80
--- NOTE | 2020-03-08 20:30 | NUR ---
NURSE NOTES: Received patient awake, alert, verbal, resting in bed, comfortable, no SOB noted.
[2020-03-08] MEDS: cefTRIAXone 1 GM in D5W 55 ML IVPB SCH (21:14)
[2020-03-08] MEDS: Enoxaparin 40mg Inj SUBQ SCH (21:15)
[2020-03-08] MEDS: PARoxetine HCL 10mg tab ORAL SCH (21:15)
--- NOTE | 2020-03-09 01:27 | Cardiology Progress Note ---
Subjective DATE OF SERVICE: Mar 08, 2020 Weak but alert Low temperature resolved Still SOB at times No CP Remains on O2 suppl by nasal cannula Covid 19 swab still pending - apparently not rec'd by lab. Objective Last 24 Hour Vital Signs Date Time Temp Pulse Resp B/P (MAP) Pulse Ox O2 Delivery O2 Flow Rate FiO2 03/08/20 21:55 96.3 03/08/20 20:48 Nasal Cannula 4.0 03/08/20 20:25 96.3 65 20 136/80 (98) 92 03/08/20 17:05 98.8 03/08/20 16:00 98.1 74 19 124/87 (99) 92 03/08/20 12:00 98.8 82 18 119/63 (81) 92 03/08/20 09:31 78 113/58 03/08/20 09:00 Nasal Cannula 4.0 03/08/20 08:00 97.4 78 19 113/58 (76) 98 03/08/20 06:51 96.6 03/08/20 04:16 96.6 60 20 146/80 (102) 98 03/08/20 02:42 96.8 ROS: unchanged from 03/04/20 HEENT: normal ENT inspection RHYTHM: NSR, PACs LUNGS: bilateral rhonchi CARDIAC: normal rate, regular rhythm, normal S1 and S2, gallop/S4 ABDOMEN: normal bowel sounds, non tender, soft, no organomegaly EXTREMITIES: non-tender, no calf tenderness, trace edema Laboratory Tests Test 03/08/20 06:00 03/08/20 09:24 03/08/20 11:43 03/08/20 16:41 White Blood Count 7.1 K/UL (4.8-10.8) Red Blood Count 4.73 M/UL (4.20-5.40) Hemoglobin 13.8 G/DL (12.0-16.0) Hematocrit 40.7 % (37.0-47.0) Mean Corpuscular Volume 86 FL (80-99) Mean Corpuscular Hemoglobin 29.2 PG (27.0-31.0) Mean Corpuscular Hemoglobin Concent 33.9 G/DL (32.0-36.0) Red Cell Distribution Width 11.6 % (11.6-14.8) Platelet Count 378 K/UL (150-450) Mean Platelet Volume 5.3 FL (6.5-10.1) L Neutrophils (%) (Auto) 81.7 % (45.0-75.0) H Lymphocytes (%) (Auto) 12.5 % (20.0-45.0) L Monocytes (%) (Auto) 3.4 % (1.0-10.0) Eosinophils (%) (Auto) 0.2 % (0.0-3.0) Basophils (%) (Auto) 2.2 % (0.0-2.0) H Sodium Level 139 MMOL/L (136-145) Potassium Level 3.7 MMOL/L (3.5-5.1) Chloride Level 102 MMOL/L (98-107) Carbon Dioxide Level 32 MMOL/L (21-32) Anion Gap 5 mmol/L (5-15) Blood Urea Nitrogen 9 mg/dL (7-18) Creatinine 0.5 MG/DL (0.55-1.30) L Estimat Glomerular Filtration Rate > 60 mL/min (>60) Glucose Level 101 MG/DL (74-106) Calcium Level 8.9 MG/DL (8.5-10.1) Magnesium Level 1.9 MG/DL (1.8-2.4) Total Bilirubin 0.3 MG/DL (0.2-1.0) Aspartate Amino Transf (AST/SGOT) 21 U/L (15-37) Alanine Aminotransferase (ALT/SGPT) 13 U/L (12-78) Alkaline Phosphatase 74 U/L (46-116) Pro-B-Type Natriuretic Peptide 257 pg/mL (0-125) H Total Protein 6.6 G/DL (6.4-8.2) Albumin 2.4 G/DL (3.4-5.0) L Globulin 4.2 g/dL Albumin/Globulin Ratio 0.6 (1.0-2.7) L POC Whole Blood Glucose 209 MG/DL (74-106) H 285 MG/DL (74-106) H 412 MG/DL (74-106) H Test 03/08/20 18:36 03/08/20 20:01 03/08/20 21:21 POC Whole Blood Glucose 420 MG/DL (74-106) H 340 MG/DL (74-106) H Pending Assessment/Plan Assessment/Plan Pneumonia Hypoxia Hypothermia resolved Possible Covid 19 PNA Lactic acidosis resolving Hypertension/HHD Acute/chronic diastolic CHF IRDM with elev glucose on steroids Rapid Covid swab ordered IVF O2 suppl Steroids Respiratory support F/U cultures and Covid swab Antimicrobials per ID DVT prophyl Advance insulin dose as needed Zaid Rosado MD Mar 09, 2020 01:27
--- NOTE | 2020-03-09 03:10 | NUR ---
NURSE NOTES: Patient refused the Covid 19 rapid test done. Charge nurse Maggie shah.
[2020-03-09 04:11] VITALS: BP 128/68
[2020-03-09] MEDS: Morphine Sulfate 2mg/ml Inj(IV/IM USE ONLY) IVP PRN ×3 (06:08→20:58)
[2020-03-09] MEDS: NovoLOG Insulin Flexpen SUBQ SCH ×4 (06:08→20:52)
--- NOTE | 2020-03-09 07:06 | NUR ---
NURSE HAND-OFF: Important Events on Shift:patient refused Covid rapid test Patient Status: [] Diet: [] Pending Orders: Rapid Covid test Pending Results/Labs Covid result Pending MD notification:Notify Bubba Poole and Emily when Covid results are in. Latest Vital Signs: Temperature 96.8 , Pulse 68 , B/P 128 /68 , Respiratory Rate 21 , O2 SAT 94 , Nasal Cannula, O2 Flow Rate 4.0 . Vital Sign Comment: [] Latest Khoury Fall Score: 70 Fall Risk: High Risk Safety Measures: Call light Within Reach, Bed Alarm Zone 2, Side Rails Side Rails x3, Bed position Low and Locked. Fall Precautions: Yellow Socks Door Sign Patient Fall Education Report given to [].
--- NOTE | 2020-03-09 07:10 | NUR ---
NURSE NOTES: Received report from Geneva GONSALEZ. Patient is awake in bed, A&O x4, Frisian speaking with minimal Egyptian. No acute distress. Patient eating breakfast. IVF running per order. Updated on care plan. On room air, no Sob. Bed in lowest position, bed alarm on, call light in reach, side rails up. Addendum: 03/09/20 at 1042 by Denise Pereira RN on 4L NC
[2020-03-09 08:00] VITALS: BP 108/55
--- NOTE | 2020-03-09 09:00 | NUR ---
NURSE NOTES: Patient refused Covid Swab.
[2020-03-09] MEDS: NS w/KCl 20mEq 1000ml 1,000 ML IV SCH ×2 (09:13→20:48)
[2020-03-09] MEDS: dexAMETHasone 10mg/ml Inj IV SCH (09:27)
[2020-03-09] MEDS: Levemir Flexpen SUBQ SCH (09:28)
--- NOTE | 2020-03-09 11:27 | Infectious Diseases Prog Note ---
Assessment/Plan Assessment/Plan antibiotics : ceftriaxone A 1. pneumonia on 4 liters O2 with saturation 93 % covid 19 pending 2. diabetes mellitus 3, hypertension P 1. continue ceftriaxone 2. continue dexamethasone day 6 3. continue isolation Subjective ROS Limited/Unobtainable: Yes Allergies: Coded Allergies: No Known Allergies (Unverified , 03/04/20) Objective Last 24 Hour Vital Signs Date Time Temp Pulse Resp B/P (MAP) Pulse Ox O2 Delivery O2 Flow Rate FiO2 03/09/20 09:00 Nasal Cannula 4.0 03/09/20 09:00 77 108/55 03/09/20 08:00 97.3 77 18 108/55 (72) 93 03/09/20 06:35 96.8 03/09/20 04:11 96.8 68 21 128/68 (88) 94 03/08/20 21:55 96.3 03/08/20 20:48 Nasal Cannula 4.0 03/08/20 20:25 96.3 65 20 136/80 (98) 92 03/08/20 17:05 98.8 03/08/20 16:00 98.1 74 19 124/87 (99) 92 03/08/20 12:00 98.8 82 18 119/63 (81) 92 Height (Feet): 5 Height (Inches): 3.00 Weight (Pounds): 120 Laboratory Tests Test 03/08/20 11:43 03/08/20 16:41 03/08/20 18:36 03/08/20 20:01 POC Whole Blood Glucose 285 MG/DL (74-106) H 412 MG/DL (74-106) H 420 MG/DL (74-106) H 340 MG/DL (74-106) H Test 03/08/20 21:21 POC Whole Blood Glucose Pending Current Medications Medications (Trade) Dose Ordered Sig/Oj Route PRN Reason Start Time Stop Time Status Last Admin Dose Admin Acetaminophen (Tylenol) 650 mg Q4H PRN ORAL Mild Pain (Pain Scale 1-3) 03/05/20 03:15 04/04/20 03:14 03/05/20 09:45 Albuterol Sulfate (Proventil MDI) 2 puff Q4H PRN INH Shortness of Breath 03/05/20 14:30 06/03/20 14:29 03/06/20 20:43 Amlodipine Besylate (Norvasc) 5 mg DAILY ORAL 03/05/20 09:00 04/04/20 08:59 03/08/20 09:31 Ceftriaxone Sodium 1 gm/ Dextrose 55 ml @ 110 mls/hr Q24H IVPB 03/05/20 21:00 03/12/20 20:59 03/08/20 21:14 Dexamethasone Sodium Phosphate (Decadron 10mg/ ml Inj) 6 mg DAILY IV 03/06/20 09:00 03/13/20 12:00 03/09/20 09:27 Dextrose (Dextrose 50%) 25 ml Q30M PRN IV Hypoglycemia 03/05/20 05:00 06/03/20 04:59 Dextrose (Dextrose 50%) 50 ml Q30M PRN IV Hypoglycemia 03/05/20 05:00 06/03/20 04:59 Enoxaparin Sodium (Lovenox) 40 mg DAILY@2100 SUBQ 03/05/20 21:00 06/03/20 20:59 03/08/20 21:15 Famotidine (Pepcid) 20 mg DAILY ORAL 03/05/20 09:00 06/03/20 08:59 03/09/20 09:27 Guaifenesin/ Dextromethorphan (Robitussin DM Syrup) 10 ml Q4H PRN ORAL For Cough 03/05/20 03:15 06/03/20 03:14 Insulin Aspart (NovoLOG) BEFORE MEALS AND HS SUBQ 03/05/20 06:30 06/03/20 06:29 03/08/20 21:24 Insulin Detemir (Levemir) 30 units DAILY SUBQ 03/08/20 09:00 06/03/20 08:59 03/09/20 09:28 Morphine Sulfate (Morphine Sulfate) 1 mg Q4H PRN IVP Severe Pain (Pain Scale 7-10) 03/06/20 21:00 03/12/20 15:29 03/09/20 06:08 Ondansetron HCl (Zofran) 4 mg Q4H PRN IVP Nausea & Vomiting 03/08/20 04:45 04/07/20 04:44 Paroxetine HCl (Paxil) 30 mg BEDTIME ORAL 03/05/20 21:00 04/04/20 20:59 03/08/20 21:15 Potassium Chloride/Sodium Chloride 1,000 ml @ 100 mls/hr Q10H IV 03/05/20 04:00 04/04/20 03:59 03/09/20 09:13 Kay Diaz MD Mar 09, 2020 11:27
[2020-03-09 11:43] VITALS: BP 144/81
--- NOTE | 2020-03-09 15:44 | NUR ---
NURSE NOTES: Patient PCR Covid test positive per lab([facility]), Dr. Diaz called, left message. Contact and droplet precautions in place.
[2020-03-09 15:47] VITALS: BP 146/76
--- NOTE | 2020-03-09 16:40 | NUR ---
NURSE NOTES: Blood sugar critically high. Charge nurse Shalonda notified Dr. Wilson. Gave Levemir 10 units once and Novolog per order. Patient had emesis x1. Now stable and saturating 94% on 4L NC.
--- NOTE | 2020-03-09 16:42 | General Progress Note ---
Subjective ROS Limited/Unobtainable: No Constitutional: Reports: malaise, weakness HEENT: Reports: no symptoms Cardiovascular: Reports: no symptoms Respiratory: Reports: cough Gastrointestinal/Abdominal: Reports: abdominal pain Genitourinary: Reports: no symptoms Neurologic/Psychiatric: Reports: anxiety Endocrine: Reports: no symptoms Hematologic/Lymphatic: Reports: no symptoms Allergies: Coded Allergies: No Known Allergies (Unverified , 03/04/20) All Systems: reviewed and negative except above Subjective no events. c/o cough and sob. no fever or chills. stable sob. on iv abx. covid still pending. c/o generalized pain. asking for iv morphine. no fevers. labs noted. Objective Last 24 Hour Vital Signs Date Time Temp Pulse Resp B/P (MAP) Pulse Ox O2 Delivery O2 Flow Rate FiO2 03/09/20 15:47 97.4 92 18 146/76 (99) 93 03/09/20 11:43 97.6 76 22 144/81 (102) 94 03/09/20 09:00 Nasal Cannula 4.0 03/09/20 09:00 77 108/55 03/09/20 08:00 97.3 77 18 108/55 (72) 93 03/09/20 06:35 96.8 03/09/20 04:11 96.8 68 21 128/68 (88) 94 03/08/20 21:55 96.3 03/08/20 20:48 Nasal Cannula 4.0 03/08/20 20:25 96.3 65 20 136/80 (98) 92 03/08/20 17:05 98.8 Intake and Output 03/08/20 03/09/20 19:00 07:00 Intake Total 1900 ml 1500 ml Balance 1900 ml 1500 ml Intake Oral 320 ml IV Total 700 ml 1180 ml Other 1200 ml # Voids 3 # Bowel Movements 1 Laboratory Tests 03/08/20 18:36: POC Whole Blood Glucose 420H 03/08/20 20:01: POC Whole Blood Glucose 340H 03/08/20 21:21: POC Whole Blood Glucose [Pending] 03/09/20 11:31: POC Whole Blood Glucose [Pending] Height (Feet): 5 Height (Inches): 3.00 Weight (Pounds): 120 Objective General Appearance: WD/WN, alert, agitated/anxious EENT: normal ENT inspection Neck: normal alignment, supple Cardiovascular: normal rate, regular rhythm Respiratory/Chest: chest wall non-tender, lungs clear, normal breath sounds, no respiratory distress, no accessory muscle use Abdomen: normal bowel sounds, non tender, soft, no organomegaly, no mass Edema: no edema noted Arm (L), no edema noted Arm (R), no edema noted Leg (L), no edema noted Leg (R) 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, alert, oriented x 3, responsive Skin: normal pigmentation Assessment/Plan Problem List: (1) Acute respiratory failure due to COVID-19 ICD Codes: U07.1 - COVID-19; J96.00 - Acute respiratory failure, unspecified whether with hypoxia or hypercapnia SNOMED: 299334929, 80474579 (2) Pneumonia due to COVID-19 virus ICD Codes: U07.1 - COVID-19; J12.82 - Pneumonia due to coronavirus disease 2019 SNOMED: 209426373070017546 (3) Hypokalemia ICD Codes: E87.6 - Hypokalemia; J96.00 - Acute respiratory failure, unspecified whether with hypoxia or hypercapnia SNOMED: 12740517, 53902151 (4) Hyperglycemia due to type 2 diabetes mellitus ICD Codes: E11.65 - Type 2 diabetes mellitus with hyperglycemia; J96.00 - Acute respiratory failure, unspecified whether with hypoxia or hypercapnia SNOMED: 399688863182534, 60943941 Qualifiers: Qualified Codes: E11.65 - Type 2 diabetes mellitus with hyperglycemia Status: stable Assessment/Plan: cont current rx monitor temps decadron/steroids await covid pcr- per er positive on the outside pain rx as needed ivf o2 resp rx monitor lytes dvt/stress ulcer prophylaxis Sanya Poole MD Mar 09, 2020 16:42
[2020-03-09] MEDS ORDERED: Levemir Flexpen SUBQ SCH (16:45)
--- NOTE | 2020-03-09 17:56 | Pulmonology Progress Note ---
Subjective ROS Limited/Unobtainable: Yes Allergies: Coded Allergies: No Known Allergies (Unverified , 03/04/20) All Systems: reviewed and negative except above Subjective care noted and reviewed on isolation no distress Objective Last 24 Hour Vital Signs Date Time Temp Pulse Resp B/P (MAP) Pulse Ox O2 Delivery O2 Flow Rate FiO2 03/09/20 15:47 97.4 92 18 146/76 (99) 93 03/09/20 11:43 97.6 76 22 144/81 (102) 94 03/09/20 09:00 Nasal Cannula 4.0 03/09/20 09:00 77 108/55 03/09/20 08:00 97.3 77 18 108/55 (72) 93 03/09/20 06:35 96.8 03/09/20 04:11 96.8 68 21 128/68 (88) 94 03/08/20 21:55 96.3 03/08/20 20:48 Nasal Cannula 4.0 03/08/20 20:25 96.3 65 20 136/80 (98) 92 Intake and Output 03/08/20 03/09/20 19:00 07:00 Intake Total 1900 ml 1500 ml Balance 1900 ml 1500 ml Intake Oral 320 ml IV Total 700 ml 1180 ml Other 1200 ml # Voids 3 # Bowel Movements 1 Objective deferred due to COVID Laboratory Tests 03/08/20 18:36: POC Whole Blood Glucose 420H 03/08/20 20:01: POC Whole Blood Glucose 340H 03/08/20 21:21: POC Whole Blood Glucose [Pending] 03/09/20 11:31: POC Whole Blood Glucose [Pending] Current Medications Medications (Trade) Dose Ordered Sig/Oj Route PRN Reason Start Time Stop Time Status Last Admin Dose Admin Acetaminophen (Tylenol) 650 mg Q4H PRN ORAL Mild Pain (Pain Scale 1-3) 03/05/20 03:15 04/04/20 03:14 03/05/20 09:45 Albuterol Sulfate (Proventil MDI) 2 puff Q4H PRN INH Shortness of Breath 03/05/20 14:30 06/03/20 14:29 03/06/20 20:43 Amlodipine Besylate (Norvasc) 5 mg DAILY ORAL 03/05/20 09:00 04/04/20 08:59 03/08/20 09:31 Ceftriaxone Sodium 1 gm/ Dextrose 55 ml @ 110 mls/hr Q24H IVPB 03/05/20 21:00 03/12/20 20:59 03/08/20 21:14 Dexamethasone Sodium Phosphate (Decadron 10mg/ ml Inj) 6 mg DAILY IV 03/06/20 09:00 03/13/20 12:00 03/09/20 09:27 Dextrose (Dextrose 50%) 25 ml Q30M PRN IV Hypoglycemia 03/05/20 05:00 06/03/20 04:59 Dextrose (Dextrose 50%) 50 ml Q30M PRN IV Hypoglycemia 03/05/20 05:00 06/03/20 04:59 Enoxaparin Sodium (Lovenox) 40 mg DAILY@2100 SUBQ 03/05/20 21:00 06/03/20 20:59 03/08/20 21:15 Famotidine (Pepcid) 20 mg DAILY ORAL 03/05/20 09:00 06/03/20 08:59 03/09/20 09:27 Guaifenesin/ Dextromethorphan (Robitussin DM Syrup) 10 ml Q4H PRN ORAL For Cough 03/05/20 03:15 06/03/20 03:14 Insulin Aspart (NovoLOG) BEFORE MEALS AND HS SUBQ 03/05/20 06:30 06/03/20 06:29 03/09/20 16:39 Insulin Detemir (Levemir) 10 units ONCE SUBQ 03/09/20 16:45 03/09/20 19:00 03/09/20 17:12 Insulin Detemir (Levemir) 30 units DAILY SUBQ 03/08/20 09:00 06/03/20 08:59 03/09/20 09:28 Morphine Sulfate (Morphine Sulfate) 1 mg Q4H PRN IVP Severe Pain (Pain Scale 7-10) 03/06/20 21:00 03/12/20 15:29 03/09/20 12:17 Ondansetron HCl (Zofran) 4 mg Q4H PRN IVP Nausea & Vomiting 03/08/20 04:45 04/07/20 04:44 03/09/20 16:38 Paroxetine HCl (Paxil) 30 mg BEDTIME ORAL 03/05/20 21:00 04/04/20 20:59 03/08/20 21:15 Assessment/Plan Assessment/Plan Impression: Possible Covid19 Pneumonia - Covid test pending Hypoxic Respiratory Failure Hypertension Diabetes Plan: - IV steroids/AB per ID -oxygen as needed - monitor for change and respiratory deterioration - Monitor labs and advise -DVT prophylaxis impression, plan, and exam edited and reviewed in detail care discussed with Anthony Tarango MD Mar 09, 2020 17:56
--- NOTE | 2020-03-09 19:20 | NUR ---
NURSE HAND-OFF: Important Events on Shift:[Hyperglycemic critical dr notified, emesis x1] Patient Status: [stable] Diet: [CCHO low med] Pending Orders: [] Pending Results/Labs:[] Pending MD notification:[] Latest Vital Signs: Temperature 97.4 , Pulse 92 , B/P 146 /76 , Respiratory Rate 18 , O2 SAT 93 , Nasal Cannula, O2 Flow Rate 4.0 . Vital Sign Comment: [] Latest Khoury Fall Score: 60 Fall Risk: High Risk Safety Measures: Call light Within Reach, Bed Alarm Zone 2, Side Rails Side Rails x3, Bed position Low and Locked. Fall Precautions: Yellow Socks Door Sign Patient Fall Education Report given to [Geneva RN ].
--- NOTE | 2020-03-09 19:30 | NUR ---
NURSE NOTES: Received patient in no apparent distress. A&OX4. NC 4L on, no s/s of respiratory distress noted. Bengali speaking. IV site patent and intact. Bed in lowest position. Call light within reach. Will continue to monitor.
[2020-03-09 20:00] VITALS: BP 118/71
[2020-03-09] MEDS: cefTRIAXone 1 GM in D5W 55 ML IVPB SCH (20:47)
[2020-03-09] MEDS: PARoxetine HCL 10mg tab ORAL SCH (20:48)
[2020-03-09] MEDS: Enoxaparin 40mg Inj SUBQ SCH (20:49)
--- NOTE | 2020-03-09 23:29 | Cardiology Progress Note ---
Subjective DATE OF SERVICE: Mar 09, 2020 Weak but alert Low temperature resolved Still SOB at times No CP Remains on O2 suppl by nasal cannula Covid 19 PCR swab positive Objective Last 24 Hour Vital Signs Date Time Temp Pulse Resp B/P (MAP) Pulse Ox O2 Delivery O2 Flow Rate FiO2 03/09/20 20:00 97.0 69 18 118/71 (87) 92 03/09/20 15:47 97.4 92 18 146/76 (99) 93 03/09/20 11:43 97.6 76 22 144/81 (102) 94 03/09/20 09:00 Nasal Cannula 4.0 03/09/20 09:00 77 108/55 03/09/20 08:00 97.3 77 18 108/55 (72) 93 03/09/20 06:35 96.8 03/09/20 04:11 96.8 68 21 128/68 (88) 94 ROS: unchanged from 03/04/20 HEENT: normal ENT inspection RHYTHM: NSR, PACs LUNGS: bilateral rhonchi CARDIAC: normal rate, regular rhythm, normal S1 and S2, gallop/S4 ABDOMEN: normal bowel sounds, non tender, soft, no organomegaly EXTREMITIES: non-tender, no calf tenderness, trace edema Laboratory Tests Test 03/09/20 11:31 POC Whole Blood Glucose Pending Assessment/Plan Assessment/Plan Pneumonia Hypoxia Hypothermia resolved Covid 19 PNA Lactic acidosis resolving Hypertension/HHD Acute/chronic diastolic CHF IRDM with more elev glucose on steroids IVF as needed O2 suppl Steroids Respiratory support F/U cultures and Covid swab Antimicrobials per ID DVT prophyl Advance insulin dosing Zaid Rosado MD Mar 09, 2020 23:29
[2020-03-10] VITALS: BP 119/68
[2020-03-10] MEDS: Morphine Sulfate 2mg/ml Inj(IV/IM USE ONLY) IVP PRN ×3 (02:28→18:55)
[2020-03-10 04:00] VITALS: BP 122/63
[2020-03-10] MEDS: NovoLOG Insulin Flexpen SUBQ SCH ×4 (06:10→21:13)
[2020-03-10] MEDS: NS w/KCl 20mEq 1000ml 1,000 ML IV SCH (06:11)
[2020-03-10 07:01] LABS: BASOPHILS % (AUTO) 0.9 % (0.0-2.0); EOSINOPHILS % (AUTO) 0.4 % (0.0-3.0); HEMATOCRIT 37.1 % (37.0-47.0); HEMOGLOBIN 12.6 G/DL (12.0-16.0); LYMPHOCYTES % (AUTO) 11.3 % (20.0-45.0); MEAN CORPUSCULAR VOLUME 87 FL (80-99); MONOCYTES % (AUTO) 4.4 % (1.0-10.0); PLATELET COUNT 349 K/UL (150-450); RED BLOOD COUNT 4.26 M/UL (4.20-5.40); RED CELL DISTRIBUTION WIDTH 11.9 % (11.6-14.8); WHITE BLOOD COUNT 10.3 K/UL (4.8-10.8)
[2020-03-10 07:11] LABS: ALANINE AMINOTRANSFERASE 14 U/L (12-78); ALBUMIN 2.4 G/DL (3.4-5.0); ALBUMIN/GLOBULIN RATIO 0.6 (1.0-2.7); ALKALINE PHOSPHATASE 63 U/L (46-116); ANION GAP 6 mmol/L (5-15); ASPARTATE AMINO TRANSFERASE 16 U/L (15-37); BILIRUBIN,TOTAL 0.2 MG/DL (0.2-1.0); BLOOD UREA NITROGEN 15 mg/dL (7-18); CALCIUM 9.2 MG/DL (8.5-10.1); CARBON DIOXIDE 30 MMOL/L (21-32); CHLORIDE 101 MMOL/L (98-107); CREATININE 0.5 MG/DL (0.55-1.30); POTASSIUM 3.9 MMOL/L (3.5-5.1); SODIUM 137 MMOL/L (136-145)
--- NOTE | 2020-03-10 07:19 | General Progress Note ---
Subjective ROS Limited/Unobtainable: No Constitutional: Reports: malaise, weakness HEENT: Reports: no symptoms Cardiovascular: Reports: no symptoms Respiratory: Reports: cough, shortness of breath Gastrointestinal/Abdominal: Reports: diarrhea Genitourinary: Reports: burning Neurologic/Psychiatric: Reports: anxiety Endocrine: Reports: no symptoms Allergies: Coded Allergies: No Known Allergies (Unverified , 03/04/20) All Systems: reviewed and negative except above Subjective covid + . stable on 4L nasal cannula. c/o "too much diarrhea and pee." on steroids labile BS. no cp. anxious. Objective Last 24 Hour Vital Signs Date Time Temp Pulse Resp B/P (MAP) Pulse Ox O2 Delivery O2 Flow Rate FiO2 03/10/20 04:00 97.5 66 18 122/63 (82) 93 03/10/20 00:00 97.4 68 18 119/68 (85) 92 03/09/20 21:00 Nasal Cannula 4.0 03/09/20 20:00 97.0 69 18 118/71 (87) 92 03/09/20 15:47 97.4 92 18 146/76 (99) 93 03/09/20 11:43 97.6 76 22 144/81 (102) 94 03/09/20 09:00 Nasal Cannula 4.0 03/09/20 09:00 77 108/55 03/09/20 08:00 97.3 77 18 108/55 (72) 93 Intake and Output 03/09/20 03/10/20 19:00 07:00 Intake Total 1800 ml 1095 ml Balance 1800 ml 1095 ml Intake Oral 700 ml 240 ml IV Total 600 ml 855 ml Other 500 ml # Voids 5 3 # Bowel Movements 1 1 Laboratory Tests 03/09/20 11:31: POC Whole Blood Glucose [Pending] 03/10/20 06:00: White Blood Count 10.3, Red Blood Count 4.26, Hemoglobin 12.6, Hematocrit 37.1, Mean Corpuscular Volume 87, Mean Corpuscular Hemoglobin 29.7, Mean Corpuscular Hemoglobin Concent 34.1, Red Cell Distribution Width 11.9, Platelet Count 349, Mean Platelet Volume 5.4L, Neutrophils (%) (Auto) 83.0H, Lymphocytes (%) (Auto) 11.3L, Monocytes (%) (Auto) 4.4, Eosinophils (%) (Auto) 0.4, Basophils (%) (Auto) 0.9, Sodium Level 137, Potassium Level 3.9, Chloride Level 101, Carbon Dioxide Level 30, Anion Gap 6, Blood Urea Nitrogen 15, Creatinine 0.5L, Estimat Glomerular Filtration Rate > 60, Glucose Level 109H, Calcium Level 9.2, Total Bilirubin 0.2, Aspartate Amino Transf (AST/SGOT) 16, Alanine Aminotransferase (ALT/SGPT) 14, Alkaline Phosphatase 63, Total Protein 6.3L, Albumin 2.4L, Globulin 3.9, Albumin/Globulin Ratio 0.6L 03/10/20 06:07: POC Whole Blood Glucose 116H Height (Feet): 5 Height (Inches): 3.00 Weight (Pounds): 120 Objective General Appearance: WD/WN, alert, agitated/anxious EENT: normal ENT inspection Neck: normal alignment, supple Cardiovascular: normal rate, regular rhythm Respiratory/Chest: chest wall non-tender, lungs clear, normal breath sounds, no respiratory distress, no accessory muscle use Abdomen: normal bowel sounds, non tender, soft, no organomegaly, no mass Edema: no edema noted Arm (L), no edema noted Arm (R), no edema noted Leg (L), no edema noted Leg (R) 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, alert, oriented x 3, responsive Skin: normal pigmentation Assessment/Plan Problem List: (1) Acute respiratory failure due to COVID-19 ICD Codes: U07.1 - COVID-19; J96.00 - Acute respiratory failure, unspecified whether with hypoxia or hypercapnia SNOMED: 993081925, 02840427 (2) Pneumonia due to COVID-19 virus ICD Codes: U07.1 - COVID-19; J12.82 - Pneumonia due to coronavirus disease 2019 SNOMED: 157802251490022977 (3) Hypokalemia ICD Codes: E87.6 - Hypokalemia; J96.00 - Acute respiratory failure, unspecified whether with hypoxia or hypercapnia SNOMED: 56853029, 30212338 (4) Hyperglycemia due to type 2 diabetes mellitus ICD Codes: E11.65 - Type 2 diabetes mellitus with hyperglycemia; J96.00 - Acute respiratory failure, unspecified whether with hypoxia or hypercapnia SNOMED: 234193027562864, 12177087 Qualifiers: Qualified Codes: E11.65 - Type 2 diabetes mellitus with hyperglycemia Status: stable Assessment/Plan: cont current rx steroids per ID ?remdesivir check cdiff lomotil added dvt/stress ulcer prophylaxis wean o2 as able dvt and stress ulcer prophylaxis monitor cxr Sanya Poole MD Mar 10, 2020 07:19
[2020-03-10] MEDS ORDERED: Lomotil 2.5mg tab ORAL PRN (07:30)
--- NOTE | 2020-03-10 07:40 | NUR ---
NURSE HAND-OFF: Important Events on Shift: Patient Status: Diet: CCHO low Pending Orders: CXR Pending Results/Labs: Pending MD notification: Latest Vital Signs: Temperature 97.5 , Pulse 66 , B/P 122 /63 , Respiratory Rate 18 , O2 SAT 93 , Nasal Cannula, O2 Flow Rate 4.0 . Vital Sign Comment: Latest Khoury Fall Score: 60 Fall Risk: High Risk Safety Measures: Call light Within Reach, Bed Alarm Zone 1, Side Rails Side Rails x3, Bed position Low and Locked. Fall Precautions: Door Sign Patient Fall Education Report given to Jacki Cheung RN.
--- NOTE | 2020-03-10 07:41 | NUR ---
NURSE NOTES: Received report from SUNSHINE Almendarez. Rounding done. Pt a/o x 4, in bed. No SOB noted with NC 4L/min. Denies any pain at this time. NS + KCl 20 meq is running @100ml/hr via Rt hand IV access. Bed in lowest position, call light within reach. Will continue to monitor.
[2020-03-10 08:00] VITALS: BP 129/70
[2020-03-10] MEDS: dexAMETHasone 10mg/ml Inj IV SCH (08:46)
[2020-03-10] MEDS: Levemir Flexpen SUBQ SCH (08:47)
--- NOTE | 2020-03-10 08:51 | Pulmonology Progress Note ---
Subjective ROS Limited/Unobtainable: No Allergies: Coded Allergies: No Known Allergies (Unverified , 03/04/20) All Systems: reviewed and negative except above Subjective care noted and reviewed on isolation no distress Objective Last 24 Hour Vital Signs Date Time Temp Pulse Resp B/P (MAP) Pulse Ox O2 Delivery O2 Flow Rate FiO2 03/10/20 08:46 73 129/70 03/10/20 08:00 97.5 73 20 129/70 (89) 94 03/10/20 04:00 97.5 66 18 122/63 (82) 93 03/10/20 00:00 97.4 68 18 119/68 (85) 92 03/09/20 21:00 Nasal Cannula 4.0 03/09/20 20:00 97.0 69 18 118/71 (87) 92 03/09/20 15:47 97.4 92 18 146/76 (99) 93 03/09/20 11:43 97.6 76 22 144/81 (102) 94 03/09/20 09:00 Nasal Cannula 4.0 03/09/20 09:00 77 108/55 Intake and Output 03/09/20 03/10/20 19:00 07:00 Intake Total 1800 ml 1095 ml Balance 1800 ml 1095 ml Intake Oral 700 ml 240 ml IV Total 600 ml 855 ml Other 500 ml # Voids 5 3 # Bowel Movements 1 1 Objective deferred due to COVID Microbiology Date/Time Source Procedure Growth Status 03/08/20 16:20 Nasopharynx Coronavirus COVID-19 PCR ([facility]) - Final Complete Laboratory Tests 03/09/20 11:31: POC Whole Blood Glucose [Pending] 03/10/20 06:00: White Blood Count 10.3, Red Blood Count 4.26, Hemoglobin 12.6, Hematocrit 37.1, Mean Corpuscular Volume 87, Mean Corpuscular Hemoglobin 29.7, Mean Corpuscular Hemoglobin Concent 34.1, Red Cell Distribution Width 11.9, Platelet Count 349, Mean Platelet Volume 5.4L, Neutrophils (%) (Auto) 83.0H, Lymphocytes (%) (Auto) 11.3L, Monocytes (%) (Auto) 4.4, Eosinophils (%) (Auto) 0.4, Basophils (%) (Auto) 0.9, Sodium Level 137, Potassium Level 3.9, Chloride Level 101, Carbon Dioxide Level 30, Anion Gap 6, Blood Urea Nitrogen 15, Creatinine 0.5L, Estimat Glomerular Filtration Rate > 60, Glucose Level 109H, Calcium Level 9.2, Magnesium Level 1.6L, Total Bilirubin 0.2, Aspartate Amino Transf (AST/SGOT) 16, Alanine Aminotransferase (ALT/SGPT) 14, Alkaline Phosphatase 63, Total Protein 6.3L, Albumin 2.4L, Globulin 3.9, Albumin/Globulin Ratio 0.6L 03/10/20 06:07: POC Whole Blood Glucose 116H Current Medications Medications (Trade) Dose Ordered Sig/Oj Route PRN Reason Start Time Stop Time Status Last Admin Dose Admin Acetaminophen (Tylenol) 650 mg Q4H PRN ORAL Mild Pain (Pain Scale 1-3) 03/05/20 03:15 04/04/20 03:14 03/05/20 09:45 Albuterol Sulfate (Proventil MDI) 2 puff Q4H PRN INH Shortness of Breath 03/05/20 14:30 06/03/20 14:29 03/06/20 20:43 Amlodipine Besylate (Norvasc) 5 mg DAILY ORAL 03/05/20 09:00 04/04/20 08:59 03/10/20 08:46 Ceftriaxone Sodium 1 gm/ Dextrose 55 ml @ 110 mls/hr Q24H IVPB 03/05/20 21:00 03/12/20 20:59 03/09/20 20:47 Dexamethasone Sodium Phosphate (Decadron 10mg/ ml Inj) 6 mg DAILY IV 03/06/20 09:00 03/13/20 12:00 03/10/20 08:46 Dextrose (Dextrose 50%) 25 ml Q30M PRN IV Hypoglycemia 03/05/20 05:00 06/03/20 04:59 Dextrose (Dextrose 50%) 50 ml Q30M PRN IV Hypoglycemia 03/05/20 05:00 06/03/20 04:59 Diphenoxylate HCl/ Atropine (Lomotil) 2.5 mg Q4H PRN ORAL Diarrhea 03/10/20 07:30 04/09/20 07:29 Enoxaparin Sodium (Lovenox) 40 mg DAILY@2100 SUBQ 03/05/20 21:00 06/03/20 20:59 03/09/20 20:49 Famotidine (Pepcid) 20 mg DAILY ORAL 03/05/20 09:00 06/03/20 08:59 03/10/20 08:46 Guaifenesin/ Dextromethorphan (Robitussin DM Syrup) 10 ml Q4H PRN ORAL For Cough 03/05/20 03:15 06/03/20 03:14 Insulin Aspart (NovoLOG) BEFORE MEALS AND HS SUBQ 03/05/20 06:30 06/03/20 06:29 03/09/20 20:52 Insulin Detemir (Levemir) 30 units DAILY SUBQ 03/08/20 09:00 06/03/20 08:59 03/10/20 08:47 Morphine Sulfate (Morphine Sulfate) 1 mg Q4H PRN IVP Severe Pain (Pain Scale 7-10) 03/06/20 21:00 03/12/20 15:29 03/10/20 08:46 Ondansetron HCl (Zofran) 4 mg Q4H PRN IVP Nausea & Vomiting 03/08/20 04:45 04/07/20 04:44 03/09/20 16:38 Paroxetine HCl (Paxil) 30 mg BEDTIME ORAL 03/05/20 21:00 04/04/20 20:59 03/09/20 20:48 Potassium Chloride/Sodium Chloride 1,000 ml @ 50 mls/hr Q20H IV 03/09/20 21:00 04/08/20 20:59 03/10/20 06:11 Assessment/Plan Assessment/Plan Impression: Possible Covid19 Pneumonia - Covid test pending Hypoxic Respiratory Failure Hypertension Diabetes Plan: - IV steroids/AB per ID -oxygen as needed - monitor for change and respiratory deterioration - Monitor labs and advise -DVT prophylaxis impression, plan, and exam edited and reviewed in detail care discussed with Anthony Tarango MD Mar 10, 2020 08:50
--- NOTE | 2020-03-10 09:08 | NUR ---
LANDSCAPE PHOTOGRAPHER NOTE SW attempted to evaluate home safety w/ pt. Pt reports she is feeling weak, thus she does not wish to participate in the evaluation and she does not want to engage verbal communication. Pt also declined to verify the information w/ this SW. SW respected pt's request.
--- NOTE | 2020-03-10 10:59 | Diagnostic Imaging Report ---
Procedure: XRAY Chest 1v Reason for study: Reason For Exam: SOB Comparison films: 03/04/2020. FINDINGS: A single one view chest is obtained. Vascularity is normal. Bilateral infiltrates are unchanged. Cardiac and mediastinal silhouette are within normal limits. CP angles are sharp. The bony thorax appear unremarkable. IMPRESSION: NO SIGNIFICANT CHANGE COMPARED TO PREVIOUS EXAM.
--- NOTE | 2020-03-10 11:01 | NUR ---
*-*DISCHARGE PLANNING*-* PATIENT HAS BEEN REFERRED TO: [facility] p: [phone] S/W KELLEY, WILL CALL BACK, AFTER REVIEW.
--- NOTE | 2020-03-10 11:32 | NUR ---
RADIOLOGY DEPT., CHEST X-RAY DONE.-P.DYE
--- NOTE | 2020-03-10 11:33 | NUR ---
RD ASSESSMENT & RECOMMENDATIONS SEE CARE ACTIVITY FOR COMPLETE ASSESSMENT DAILY ESTIMATED NEEDS: Needs based on Pulmonary, DM 55kg 25-30 kcals/kg 6215-3818 total kcals 1-1.5 g protein/kg 55-83 g total protein 25-30 mL/kg 2544-1121 total fluid mLs NUTRITION DIAGNOSIS: Altered nutrition related lab values r/t diabetes as evidenced by A1C 10.6, Uglu on adm 4+. CURRENT DIET: CCHO LOW ms chopped PO DIET RECOMMENDATIONS: Continue CCHO LOW diet (texture as tolerated) ADDITIONAL RECOMMENDATIONS: 1) On ms chopped diet, consider EQUAL OPPORTUNITY COUNSELOR eval for texture upgrade 2) BG improved, monitor for hypoglycemic events 3) Lytes low, replete as needed (Low Mg 1.6) 4) Drop in weight-> recalibrate bed scale or obtain a standing wt as able
[2020-03-10 12:00] VITALS: BP 159/79
--- NOTE | 2020-03-10 12:56 | Infectious Diseases Prog Note ---
Assessment/Plan Assessment/Plan A 1. pneumonia with COVID19 2. diabetes mellitus 3, hypertension 4. Hypoxemia P 1. continue ceftriaxone 2.. continue dexamethasone day 7 4. continue isolation Subjective ROS Limited/Unobtainable: Yes Constitutional: Reports: no symptoms Allergies: Coded Allergies: No Known Allergies (Unverified , 03/04/20) Objective Last 24 Hour Vital Signs Date Time Temp Pulse Resp B/P (MAP) Pulse Ox O2 Delivery O2 Flow Rate FiO2 03/10/20 12:00 97.3 66 17 159/79 (105) 96 03/10/20 09:00 Nasal Cannula 4.0 03/10/20 08:46 73 129/70 03/10/20 08:00 97.5 73 20 129/70 (89) 94 03/10/20 04:00 97.5 66 18 122/63 (82) 93 03/10/20 00:00 97.4 68 18 119/68 (85) 92 03/09/20 21:00 Nasal Cannula 4.0 03/09/20 20:00 97.0 69 18 118/71 (87) 92 03/09/20 15:47 97.4 92 18 146/76 (99) 93 Height (Feet): 5 Height (Inches): 3.00 Weight (Pounds): 120 HEENT: mucous membranes moist Respiratory/Chest: other - oxygen by nasal cannula 4 L Cardiovascular: normal rate Abdomen: soft, non tender Extremities: no edema Neurologic/Psychiatric: alert, responsive Microbiology Date/Time Source Procedure Growth Status 03/08/20 16:20 Nasopharynx Coronavirus COVID-19 PCR ([facility]) - Final Complete Laboratory Tests Test 03/10/20 06:00 03/10/20 06:07 03/10/20 11:59 White Blood Count 10.3 K/UL (4.8-10.8) Red Blood Count 4.26 M/UL (4.20-5.40) Hemoglobin 12.6 G/DL (12.0-16.0) Hematocrit 37.1 % (37.0-47.0) Mean Corpuscular Volume 87 FL (80-99) Mean Corpuscular Hemoglobin 29.7 PG (27.0-31.0) Mean Corpuscular Hemoglobin Concent 34.1 G/DL (32.0-36.0) Red Cell Distribution Width 11.9 % (11.6-14.8) Platelet Count 349 K/UL (150-450) Mean Platelet Volume 5.4 FL (6.5-10.1) L Neutrophils (%) (Auto) 83.0 % (45.0-75.0) H Lymphocytes (%) (Auto) 11.3 % (20.0-45.0) L Monocytes (%) (Auto) 4.4 % (1.0-10.0) Eosinophils (%) (Auto) 0.4 % (0.0-3.0) Basophils (%) (Auto) 0.9 % (0.0-2.0) Sodium Level 137 MMOL/L (136-145) Potassium Level 3.9 MMOL/L (3.5-5.1) Chloride Level 101 MMOL/L (98-107) Carbon Dioxide Level 30 MMOL/L (21-32) Anion Gap 6 mmol/L (5-15) Blood Urea Nitrogen 15 mg/dL (7-18) Creatinine 0.5 MG/DL (0.55-1.30) L Estimat Glomerular Filtration Rate > 60 mL/min (>60) Glucose Level 109 MG/DL (74-106) H Calcium Level 9.2 MG/DL (8.5-10.1) Magnesium Level 1.6 MG/DL (1.8-2.4) L Total Bilirubin 0.2 MG/DL (0.2-1.0) Aspartate Amino Transf (AST/SGOT) 16 U/L (15-37) Alanine Aminotransferase (ALT/SGPT) 14 U/L (12-78) Alkaline Phosphatase 63 U/L (46-116) Total Protein 6.3 G/DL (6.4-8.2) L Albumin 2.4 G/DL (3.4-5.0) L Globulin 3.9 g/dL Albumin/Globulin Ratio 0.6 (1.0-2.7) L POC Whole Blood Glucose 116 MG/DL (74-106) H 273 MG/DL (74-106) H Current Medications Medications (Trade) Dose Ordered Sig/Oj Route PRN Reason Start Time Stop Time Status Last Admin Dose Admin Acetaminophen (Tylenol) 650 mg Q4H PRN ORAL Mild Pain (Pain Scale 1-3) 03/05/20 03:15 04/04/20 03:14 03/05/20 09:45 Albuterol Sulfate (Proventil MDI) 2 puff Q4H PRN INH Shortness of Breath 03/05/20 14:30 06/03/20 14:29 03/06/20 20:43 Amlodipine Besylate (Norvasc) 5 mg DAILY ORAL 03/05/20 09:00 04/04/20 08:59 03/10/20 08:46 Ceftriaxone Sodium 1 gm/ Dextrose 55 ml @ 110 mls/hr Q24H IVPB 03/05/20 21:00 03/12/20 20:59 03/09/20 20:47 Dexamethasone Sodium Phosphate (Decadron 10mg/ ml Inj) 6 mg DAILY IV 03/06/20 09:00 03/13/20 12:00 03/10/20 08:46 Dextrose (Dextrose 50%) 25 ml Q30M PRN IV Hypoglycemia 03/05/20 05:00 06/03/20 04:59 Dextrose (Dextrose 50%) 50 ml Q30M PRN IV Hypoglycemia 03/05/20 05:00 06/03/20 04:59 Diphenoxylate HCl/ Atropine (Lomotil) 2.5 mg Q4H PRN ORAL Diarrhea 03/10/20 07:30 04/09/20 07:29 Enoxaparin Sodium (Lovenox) 40 mg DAILY@2100 SUBQ 03/05/20 21:00 06/03/20 20:59 03/09/20 20:49 Famotidine (Pepcid) 20 mg DAILY ORAL 03/05/20 09:00 06/03/20 08:59 03/10/20 08:46 Guaifenesin/ Dextromethorphan (Robitussin DM Syrup) 10 ml Q4H PRN ORAL For Cough 03/05/20 03:15 06/03/20 03:14 Insulin Aspart (NovoLOG) BEFORE MEALS AND HS SUBQ 03/05/20 06:30 06/03/20 06:29 03/10/20 12:01 Insulin Detemir (Levemir) 30 units DAILY SUBQ 03/08/20 09:00 06/03/20 08:59 03/10/20 08:47 Morphine Sulfate (Morphine Sulfate) 1 mg Q4H PRN IVP Severe Pain (Pain Scale 7-10) 03/06/20 21:00 03/12/20 15:29 03/10/20 08:46 Ondansetron HCl (Zofran) 4 mg Q4H PRN IVP Nausea & Vomiting 03/08/20 04:45 04/07/20 04:44 03/09/20 16:38 Paroxetine HCl (Paxil) 30 mg BEDTIME ORAL 03/05/20 21:00 04/04/20 20:59 03/09/20 20:48 Potassium Chloride/Sodium Chloride 1,000 ml @ 50 mls/hr Q20H IV 03/09/20 21:00 04/08/20 20:59 03/10/20 06:11 Lele Schuster MD Mar 10, 2020 12:56
[2020-03-10 16:00] VITALS: BP 137/74
--- NOTE | 2020-03-10 17:30 | NUR ---
NURSE NOTES: Sugar was [address] Rosado ordered levemir 10 units SQ every evening and Magnesium 2gm IVPB one time. Order read back and will put it in.
[2020-03-10] MEDS ORDERED: Levemir Flexpen SUBQ SCH (17:45)
--- NOTE | 2020-03-10 19:37 | NUR ---
NURSE HAND-OFF: Important Events on Shift: Critical high blood sugar: 511 Patient Status: stable Pending Orders: n/a Pending Results/Labs:n/a Pending MD notification:n/a Latest Vital Signs: Temperature 97.7 , Pulse 85 , B/P 137 /74 , Respiratory Rate 18 , O2 SAT 94 , Nasal Cannula, O2 Flow Rate 4.0 . Vital Sign Comment: stable Latest Khoury Fall Score: 60 Fall Risk: High Risk Safety Measures: Call light Within Reach, Bed Alarm Zone 1, Side Rails Side Rails x3, Bed position Low and Locked. Fall Precautions: Door Sign Patient Fall Education Report given to SUNSHINE Bernal.
--- NOTE | 2020-03-10 19:38 | NUR ---
NURSE NOTES: Patient in bed, awake and x4. On nasal cannula 4L with no signs of distress or SOB. Bed locked and in lowest position. Call light within reach. Will continue plan of care.
[2020-03-10 20:00] VITALS: BP 136/80
[2020-03-10] MEDS: Enoxaparin 40mg Inj SUBQ SCH (20:55)
[2020-03-10] MEDS: cefTRIAXone 1 GM in D5W 55 ML IVPB SCH (20:55)
[2020-03-10] MEDS: PARoxetine HCL 10mg tab ORAL SCH (20:55)
--- NOTE | 2020-03-10 23:14 | Cardiology Progress Note ---
Subjective DATE OF SERVICE: Mar 10, 2020 Has frequency and diarrhea Less SOB No CP Remains on O2 suppl by nasal cannula Covid 19 PCR swab positive Objective Last 24 Hour Vital Signs Date Time Temp Pulse Resp B/P (MAP) Pulse Ox O2 Delivery O2 Flow Rate FiO2 03/10/20 21:00 Nasal Cannula 4.0 03/10/20 20:00 97.2 74 20 136/80 (98) 95 03/10/20 16:00 97.7 85 18 137/74 (95) 94 03/10/20 12:00 97.3 66 17 159/79 (105) 96 03/10/20 09:00 Nasal Cannula 4.0 03/10/20 08:46 73 129/70 03/10/20 08:00 97.5 73 20 129/70 (89) 94 03/10/20 04:00 97.5 66 18 122/63 (82) 93 03/10/20 00:00 97.4 68 18 119/68 (85) 92 ROS: unchanged from 03/04/20 HEENT: normal ENT inspection RHYTHM: NSR, PACs LUNGS: bilateral rhonchi CARDIAC: normal rate, regular rhythm, normal S1 and S2, gallop/S4 ABDOMEN: normal bowel sounds, non tender, soft, no organomegaly EXTREMITIES: non-tender, no calf tenderness, trace edema Laboratory Tests Test 03/10/20 06:00 03/10/20 06:07 03/10/20 11:59 03/10/20 21:00 White Blood Count 10.3 K/UL (4.8-10.8) Red Blood Count 4.26 M/UL (4.20-5.40) Hemoglobin 12.6 G/DL (12.0-16.0) Hematocrit 37.1 % (37.0-47.0) Mean Corpuscular Volume 87 FL (80-99) Mean Corpuscular Hemoglobin 29.7 PG (27.0-31.0) Mean Corpuscular Hemoglobin Concent 34.1 G/DL (32.0-36.0) Red Cell Distribution Width 11.9 % (11.6-14.8) Platelet Count 349 K/UL (150-450) Mean Platelet Volume 5.4 FL (6.5-10.1) L Neutrophils (%) (Auto) 83.0 % (45.0-75.0) H Lymphocytes (%) (Auto) 11.3 % (20.0-45.0) L Monocytes (%) (Auto) 4.4 % (1.0-10.0) Eosinophils (%) (Auto) 0.4 % (0.0-3.0) Basophils (%) (Auto) 0.9 % (0.0-2.0) Sodium Level 137 MMOL/L (136-145) Potassium Level 3.9 MMOL/L (3.5-5.1) Chloride Level 101 MMOL/L (98-107) Carbon Dioxide Level 30 MMOL/L (21-32) Anion Gap 6 mmol/L (5-15) Blood Urea Nitrogen 15 mg/dL (7-18) Creatinine 0.5 MG/DL (0.55-1.30) L Estimat Glomerular Filtration Rate > 60 mL/min (>60) Glucose Level 109 MG/DL (74-106) H Calcium Level 9.2 MG/DL (8.5-10.1) Magnesium Level 1.6 MG/DL (1.8-2.4) L Total Bilirubin 0.2 MG/DL (0.2-1.0) Aspartate Amino Transf (AST/SGOT) 16 U/L (15-37) Alanine Aminotransferase (ALT/SGPT) 14 U/L (12-78) Alkaline Phosphatase 63 U/L (46-116) Total Protein 6.3 G/DL (6.4-8.2) L Albumin 2.4 G/DL (3.4-5.0) L Globulin 3.9 g/dL Albumin/Globulin Ratio 0.6 (1.0-2.7) L POC Whole Blood Glucose 116 MG/DL (74-106) H 273 MG/DL (74-106) H Pending Microbiology Date/Time Source Procedure Growth Status 03/08/20 16:20 Nasopharynx Coronavirus COVID-19 PCR ([facility]) - Final Complete Assessment/Plan Assessment/Plan Pneumonia Hypoxia Hypothermia resolved Covid 19 PNA Lactic acidosis resolving Hypertension/HHD Acute/chronic diastolic CHF IRDM with more elev glucose on steroids Diarrhea IVF as needed O2 suppl Steroids Respiratory support Antimicrobials per ID DVT prophyl Advance insulin dosing To [place] tomorrow if stable on low flow O2 Zaid Rosado MD Mar 10, 2020 23:14
[2020-03-11] VITALS: BP 154/78
[2020-03-11] MEDS: NS w/KCl 20mEq 1000ml 1,000 ML IV SCH (01:43)
[2020-03-11 04:00] VITALS: BP 156/83
--- NOTE | 2020-03-11 04:00 | NUR ---
NURSE NOTES: C-diff toxin specimen collected and sent to lab
[2020-03-11] MEDS: Morphine Sulfate 2mg/ml Inj(IV/IM USE ONLY) IVP PRN (04:08)
--- NOTE | 2020-03-11 05:09 | Cardiology Report ---
APPROVED REPORT EKG Measurement Heart [id number] <Conclusion> Normal sinus rhythm Nonspecific ST abnormality Prolonged QT Abnormal ECG
[2020-03-11 05:21] LABS: ANION GAP 8 mmol/L (5-15); BLOOD UREA NITROGEN 19 mg/dL (7-18); CALCIUM 10.2 MG/DL (8.5-10.1); CARBON DIOXIDE 30 MMOL/L (21-32); CHLORIDE 96 MMOL/L (98-107); CREATININE 0.6 MG/DL (0.55-1.30); POTASSIUM 4.2 MMOL/L (3.5-5.1); SODIUM 134 MMOL/L (136-145)
[2020-03-11] MEDS: NovoLOG Insulin Flexpen SUBQ SCH ×2 (05:35→12:27)
--- NOTE | 2020-03-11 06:13 | NUR ---
NURSE HAND-OFF: Important Events on Shift: No acute events Patient Status: Stable Diet: CCHO low Pending Orders: N/A Pending Results/Labs: BMP Pending MD notification: N/A Latest Vital Signs: Temperature 97.0 , Pulse 63 , B/P 156 /83 , Respiratory Rate 20 , O2 SAT 96 , Nasal Cannula, O2 Flow Rate 4.0 . Vital Sign Comment: N/A Latest Khoury Fall Score: 60 Fall Risk: High Risk Safety Measures: Call light Within Reach, Bed Alarm Zone 1, Side Rails Side Rails x3, Bed position Low and Locked. Fall Precautions: Door Sign Patient Fall Education
--- NOTE | 2020-03-11 07:50 | NUR ---
NURSE NOTES: RN received report from Dolores, patient in bed [id number], showing no s/s of respiratory distress on 2L of NC or pain. Plan of care communicated. IV intact, dry, patent, running and asymptomatic. Bed in lowest position, locked and bed alarm on. Side rails up x3. Call light within reach. Will continue to monitor.
[2020-03-11 08:00] VITALS: BP 103/61
[2020-03-11] MEDS: Levemir Flexpen SUBQ SCH (08:56)
[2020-03-11] MEDS: dexAMETHasone 10mg/ml Inj IV SCH (08:58)
--- NOTE | 2020-03-11 09:15 | Pulmonology Progress Note ---
Subjective ROS Limited/Unobtainable: Yes Constitutional: Reports: no symptoms Allergies: Coded Allergies: No Known Allergies (Unverified , 03/04/20) All Systems: reviewed and negative except above Subjective care noted and reviewed on isolation no distress Objective Last 24 Hour Vital Signs Date Time Temp Pulse Resp B/P (MAP) Pulse Ox O2 Delivery O2 Flow Rate FiO2 03/11/20 08:59 61 103/61 03/11/20 08:00 97.6 61 19 103/61 (75) 94 03/11/20 04:00 97.0 63 20 156/83 (107) 96 03/11/20 00:00 97.9 66 20 154/78 (103) 98 03/10/20 21:00 Nasal Cannula 4.0 03/10/20 20:00 97.2 74 20 136/80 (98) 95 03/10/20 16:00 97.7 85 18 137/74 (95) 94 03/10/20 12:00 97.3 66 17 159/79 (105) 96 l Intake and Output 03/10/20 03/11/20 19:00 07:00 Intake Total 2340 ml 500 ml Balance 2340 ml 500 ml Intake Oral 840 ml 500 ml IV Total 1500 ml # Voids 3 4 # Bowel Movements 1 1 Objective deferred due to COVID Microbiology Date/Time Source Procedure Growth Status 03/08/20 16:20 Nasopharynx Coronavirus COVID-19 PCR ([facility]) - Final Complete Laboratory Tests 03/10/20 11:59: POC Whole Blood Glucose 273H 03/10/20 21:00: POC Whole Blood Glucose [Pending] 03/11/20 04:45: Sodium Level 134L, Potassium Level 4.2, Chloride Level 96L, Carbon Dioxide Level 30, Anion Gap 8, Blood Urea Nitrogen 19H, Creatinine 0.6, Estimat Glomerular Filtration Rate > 60, Glucose Level 209#H, Calcium Level 10.2H Current Medications Medications (Trade) Dose Ordered Sig/Oj Route PRN Reason Start Time Stop Time Status Last Admin Dose Admin Acetaminophen (Tylenol) 650 mg Q4H PRN ORAL Mild Pain (Pain Scale 1-3) 03/05/20 03:15 04/04/20 03:14 03/05/20 09:45 Albuterol Sulfate (Proventil MDI) 2 puff Q4H PRN INH Shortness of Breath 03/05/20 14:30 06/03/20 14:29 03/06/20 20:43 Amlodipine Besylate (Norvasc) 5 mg DAILY ORAL 03/05/20 09:00 04/04/20 08:59 03/10/20 08:46 Ceftriaxone Sodium 1 gm/ Dextrose 55 ml @ 110 mls/hr Q24H IVPB 03/05/20 21:00 03/12/20 20:59 03/10/20 20:55 Dexamethasone Sodium Phosphate (Decadron 10mg/ ml Inj) 6 mg DAILY IV 03/06/20 09:00 03/13/20 12:00 03/11/20 08:58 Dextrose (Dextrose 50%) 25 ml Q30M PRN IV Hypoglycemia 03/05/20 05:00 06/03/20 04:59 Dextrose (Dextrose 50%) 50 ml Q30M PRN IV Hypoglycemia 03/05/20 05:00 06/03/20 04:59 Diphenoxylate HCl/ Atropine (Lomotil) 2.5 mg Q4H PRN ORAL Diarrhea 03/10/20 07:30 04/09/20 07:29 Enoxaparin Sodium (Lovenox) 40 mg DAILY@2100 SUBQ 03/05/20 21:00 06/03/20 20:59 03/10/20 20:55 Famotidine (Pepcid) 20 mg DAILY ORAL 03/05/20 09:00 06/03/20 08:59 03/11/20 08:58 Guaifenesin/ Dextromethorphan (Robitussin DM Syrup) 10 ml Q4H PRN ORAL For Cough 03/05/20 03:15 06/03/20 03:14 Insulin Aspart (NovoLOG) BEFORE MEALS AND HS SUBQ 03/05/20 06:30 06/03/20 06:29 03/11/20 05:35 Insulin Detemir (Levemir) 10 units Q24H SUBQ 03/10/20 17:45 06/08/20 17:44 03/10/20 17:54 Insulin Detemir (Levemir) 30 units DAILY SUBQ 03/08/20 09:00 06/03/20 08:59 03/11/20 08:56 Morphine Sulfate (Morphine Sulfate) 1 mg Q4H PRN IVP Severe Pain (Pain Scale 7-10) 03/06/20 21:00 03/12/20 15:29 03/11/20 04:08 Ondansetron HCl (Zofran) 4 mg Q4H PRN IVP Nausea & Vomiting 03/08/20 04:45 04/07/20 04:44 03/09/20 16:38 Paroxetine HCl (Paxil) 30 mg BEDTIME ORAL 03/05/20 21:00 04/04/20 20:59 03/10/20 20:55 Potassium Chloride/Sodium Chloride 1,000 ml @ 50 mls/hr Q20H IV 03/09/20 21:00 04/08/20 20:59 03/11/20 01:43 Assessment/Plan Assessment/Plan Impression: Covid19 Pneumonia Hypoxic Respiratory Failure Hypertension Diabetes Plan: - IV steroids/AB per ID -oxygen as needed - monitor for change and respiratory deterioration - Monitor labs and advise -DVT prophylaxis impression, plan, and exam edited and reviewed in detail care discussed with Anthony Tarango MD Mar 11, 2020 09:15
--- NOTE | 2020-03-11 09:53 | NUR ---
*-*DISCHARGE PLANNING*-* [facility] p: [phone] S/W KELLEY, WILL CALL BACK TO GIVE ROOM NUMBER.
--- NOTE | 2020-03-11 10:59 | NUR ---
*-*DISCHARGE PLANNING*-* [facility] [place] p: [phone] ROOM#8
--- NOTE | 2020-03-11 11:27 | Infectious Diseases Prog Note ---
Assessment/Plan Assessment/Plan antibiotics : ceftriaxone A 1. covid 19 pneumonia on 2 liters O2 with saturation 94 % 2. diabetes mellitus 3, hypertension P 1. d/c ceftriaxone 2. start ivermectin x 1 dose 3. continue dexamethasone day 8 4. continue isolation Subjective ROS Limited/Unobtainable: Yes Allergies: Coded Allergies: No Known Allergies (Unverified , 03/04/20) Objective Last 24 Hour Vital Signs Date Time Temp Pulse Resp B/P (MAP) Pulse Ox O2 Delivery O2 Flow Rate FiO2 03/11/20 09:00 Nasal Cannula 2.0 03/11/20 08:59 61 103/61 03/11/20 08:00 97.6 61 19 103/61 (75) 94 03/11/20 04:00 97.0 63 20 156/83 (107) 96 03/11/20 00:00 97.9 66 20 154/78 (103) 98 03/10/20 21:00 Nasal Cannula 4.0 03/10/20 20:00 97.2 74 20 136/80 (98) 95 03/10/20 16:00 97.7 85 18 137/74 (95) 94 03/10/20 12:00 97.3 66 17 159/79 (105) 96 Height (Feet): 5 Height (Inches): 3.00 Weight (Pounds): 120 Microbiology Date/Time Source Procedure Growth Status 03/08/20 16:20 Nasopharynx Coronavirus COVID-19 PCR ([facility]) - Final Complete Laboratory Tests Test 03/10/20 11:59 03/10/20 21:00 03/11/20 04:45 POC Whole Blood Glucose 273 MG/DL (74-106) H Pending Sodium Level 134 MMOL/L (136-145) L Potassium Level 4.2 MMOL/L (3.5-5.1) Chloride Level 96 MMOL/L (98-107) L Carbon Dioxide Level 30 MMOL/L (21-32) Anion Gap 8 mmol/L (5-15) Blood Urea Nitrogen 19 mg/dL (7-18) H Creatinine 0.6 MG/DL (0.55-1.30) Estimat Glomerular Filtration Rate > 60 mL/min (>60) Glucose Level 209 MG/DL (74-106) #H Calcium Level 10.2 MG/DL (8.5-10.1) H Current Medications Medications (Trade) Dose Ordered Sig/Oj Route PRN Reason Start Time Stop Time Status Last Admin Dose Admin Acetaminophen (Tylenol) 650 mg Q4H PRN ORAL Mild Pain (Pain Scale 1-3) 03/05/20 03:15 04/04/20 03:14 03/05/20 09:45 Albuterol Sulfate (Proventil MDI) 2 puff Q4H PRN INH Shortness of Breath 03/05/20 14:30 06/03/20 14:29 03/06/20 20:43 Amlodipine Besylate (Norvasc) 5 mg DAILY ORAL 03/05/20 09:00 04/04/20 08:59 03/10/20 08:46 Ceftriaxone Sodium 1 gm/ Dextrose 55 ml @ 110 mls/hr Q24H IVPB 03/05/20 21:00 03/12/20 20:59 03/10/20 20:55 Dexamethasone Sodium Phosphate (Decadron 10mg/ ml Inj) 6 mg DAILY IV 03/06/20 09:00 03/13/20 12:00 03/11/20 08:58 Dextrose (Dextrose 50%) 25 ml Q30M PRN IV Hypoglycemia 03/05/20 05:00 06/03/20 04:59 Dextrose (Dextrose 50%) 50 ml Q30M PRN IV Hypoglycemia 03/05/20 05:00 06/03/20 04:59 Diphenoxylate HCl/ Atropine (Lomotil) 2.5 mg Q4H PRN ORAL Diarrhea 03/10/20 07:30 04/09/20 07:29 Enoxaparin Sodium (Lovenox) 40 mg DAILY@2100 SUBQ 03/05/20 21:00 06/03/20 20:59 03/10/20 20:55 Famotidine (Pepcid) 20 mg DAILY ORAL 03/05/20 09:00 06/03/20 08:59 03/11/20 08:58 Guaifenesin/ Dextromethorphan (Robitussin DM Syrup) 10 ml Q4H PRN ORAL For Cough 03/05/20 03:15 06/03/20 03:14 Insulin Aspart (NovoLOG) BEFORE MEALS AND HS SUBQ 03/05/20 06:30 06/03/20 06:29 03/11/20 05:35 Insulin Detemir (Levemir) 10 units Q24H SUBQ 03/10/20 17:45 06/08/20 17:44 03/10/20 17:54 Insulin Detemir (Levemir) 30 units DAILY SUBQ 03/08/20 09:00 06/03/20 08:59 03/11/20 08:56 Morphine Sulfate (Morphine Sulfate) 1 mg Q4H PRN IVP Severe Pain (Pain Scale 7-10) 03/06/20 21:00 03/12/20 15:29 03/11/20 04:08 Ondansetron HCl (Zofran) 4 mg Q4H PRN IVP Nausea & Vomiting 03/08/20 04:45 04/07/20 04:44 03/09/20 16:38 Paroxetine HCl (Paxil) 30 mg BEDTIME ORAL 03/05/20 21:00 04/04/20 20:59 03/10/20 20:55 Potassium Chloride/Sodium Chloride 1,000 ml @ 50 mls/hr Q20H IV 03/09/20 21:00 04/08/20 20:59 03/11/20 01:43 Kay Diaz MD Mar 11, 2020 11:27
[2020-03-11 12:00] VITALS: BP 135/72
[2020-03-11] MEDS ORDERED: FAMOTIDINE20 MG ORAL (13:07)
[2020-03-11] MEDS ORDERED: ACETAMINOPHEN325 M1 ORAL (13:07)
[2020-03-11] MEDS ORDERED: GUAIFENESIN DM118 M1 ORAL (13:07)
[2020-03-11] MEDS ORDERED: LOMOTIL TABLET1 EACH ORAL (13:07)
[2020-03-11] MEDS ORDERED: NOVOLOG100 UNITS1 SUBQ (13:07)
[2020-03-11] MEDS ORDERED: LOVENOX10 M4 SUBQ (13:07)
--- NOTE | 2020-03-11 13:10 | Cardiology Progress Note ---
Subjective DATE OF SERVICE: Mar 11, 2020 received Ivermectin dose Less SOB No CP Remains on 2L O2 suppl by nasal cannula Covid 19 PCR swab positive Objective Last 24 Hour Vital Signs Date Time Temp Pulse Resp B/P (MAP) Pulse Ox O2 Delivery O2 Flow Rate FiO2 03/11/20 12:00 98.2 75 20 135/72 (93) 90 03/11/20 09:00 Nasal Cannula 2.0 03/11/20 08:59 61 103/61 03/11/20 08:00 97.6 61 19 103/61 (75) 94 03/11/20 04:00 97.0 63 20 156/83 (107) 96 03/11/20 00:00 97.9 66 20 154/78 (103) 98 03/10/20 21:00 Nasal Cannula 4.0 03/10/20 20:00 97.2 74 20 136/80 (98) 95 03/10/20 16:00 97.7 85 18 137/74 (95) 94 ROS: unchanged from 03/04/20 HEENT: normal ENT inspection RHYTHM: NSR, PACs LUNGS: bilateral rhonchi CARDIAC: normal rate, regular rhythm, normal S1 and S2, gallop/S4 ABDOMEN: normal bowel sounds, non tender, soft, no organomegaly EXTREMITIES: non-tender, no calf tenderness, trace edema Laboratory Tests Test 03/10/20 21:00 03/11/20 04:45 POC Whole Blood Glucose Pending Sodium Level 134 MMOL/L (136-145) L Potassium Level 4.2 MMOL/L (3.5-5.1) Chloride Level 96 MMOL/L (98-107) L Carbon Dioxide Level 30 MMOL/L (21-32) Anion Gap 8 mmol/L (5-15) Blood Urea Nitrogen 19 mg/dL (7-18) H Creatinine 0.6 MG/DL (0.55-1.30) Estimat Glomerular Filtration Rate > 60 mL/min (>60) Glucose Level 209 MG/DL (74-106) #H Calcium Level 10.2 MG/DL (8.5-10.1) H Microbiology Date/Time Source Procedure Growth Status 03/08/20 16:20 Nasopharynx Coronavirus COVID-19 PCR ([facility]) - Final Complete Assessment/Plan Assessment/Plan Pneumonia Hypoxia Hypothermia resolved Covid 19 PNA Lactic acidosis resolving Hypertension/HHD now controlled Acute/chronic diastolic CHF IRDM with more elev glucose on steroids Diarrhea IVF discont'd O2 suppl Steroids discont'd Respiratory support DVT prophyl Titrate insulin dosing off steroids To [facility] today for rehab Zaid Rosado MD Mar 11, 2020 13:10
--- NOTE | 2020-03-11 13:21 | NUR ---
*-*DISCHARGE PLANNED*-* PATIENT HAS BEEN ACCEPTED AND WILL BE DISCHARGED TO: [facility] p: [phone] FOR NURSE TO NURSE REPORT ROOM#8 [facility] TRANSPORTATION SET FOR 3PM S/W TAMIKA [id number].
[2020-03-11 16:00] VITALS: BP 127/69
--- NOTE | 2020-03-11 16:30 | NUR ---
NURSE NOTES: [facility] to room 8a. Patient is [id number], shows no s/s of respiratory distress or pain. Patient is transported on a gurney by Hua from [facility] on semi-thomas position with 2 L of O2 from an oxygen tank. Belongings are checked with the patient and signed. IV and ID removed. Patient packet is given to [facility].
--- NOTE | 2020-03-11 18:49 | NUR ---
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 RN will deliver the belongings to [facility] and file signed belonging form in the patient's chart. Addendum: 03/11/20 at 1853 by Abelardo Prieto RN RN will ask the personnel at [facility] to fax the signed belonging sheet to [facility] so that Thony can file it in the patient's chart. RN will ensorse it to Thony.
--- NOTE | 2020-03-13 14:44 | Consultation ---
DATE OF CONSULTATION: 03/04/2020 CARDIOLOGY CONSULTATION CONSULTING PHYSICIAN: Zaid Rosado MD. REQUESTING PHYSICIAN: Sanya Poole MD. REASON FOR CONSULTATION: Shortness of breath, evaluate for congestive heart failure component. HISTORY OF PRESENT ILLNESS: This is a 69-year-old [place] female. She presented to the emergency room with cough, shortness of breath, fever and weakness of 7 days duration. The patient was noted to be hypoxic several days ago but refused to come to the hospital. Her symptoms worsened today prompting this evaluation. She does have a history of hypertension and congestive heart failure. PAST MEDICAL HISTORY: Includes type 2 diabetes mellitus, hypertension, osteoarthritis. SOCIAL HISTORY: Negative for smoking, alcohol, or substance abuse. FAMILY HISTORY: Noncontributory. MEDICATIONS: Prior to admission reviewed and reconciled. REVIEW OF SYSTEMS: No history of myocardial infarction. She notes occasional leg swelling. There is no history of rheumatic heart disease or irregular heart beats. The patient has a history of hypertension. There is no history of abnormal blood clotting. There is no history of thyroid disorder. She is on oral therapy for diabetes. PHYSICAL EXAMINATION: VITAL SIGNS: Blood pressure 154/74, pulse 72, respiratory rate 16, temperature 99, oxygen saturation 94% on 4 liters. HEENT: Conjunctivae pink. Oropharynx clear. NECK: Supple. No accessory muscle use. LUNGS: Coarse breath sounds. Rhonchi and few rales. CARDIAC: Regular rhythm and rate. Normal S1 and S2. Point of maximum impulse sustained. There is a fourth heart sound. ABDOMEN: Soft and nontender. EXTREMITIES: No clubbing or cyanosis. There is trace edema. There is no calf tenderness. NEUROLOGIC: Nonfocal. LABORATORY AND DIAGNOSTIC DATA: EKG shows sinus rhythm with no acute abnormalities, ventricular rate was 88. Chest x-ray multifocal bilateral airspace opacities. White count 7.3, hemoglobin 14.1. Lactic acid 2.1. Troponin 0.012. Natriuretic peptide 418. Albumin 2.9. Sodium 133, potassium 2.9, chloride 93, bicarb 22, BUN 16, creatinine 0.8, glucose 293. IMPRESSION: 1. Community-acquired pneumonia, possible COVID-19. 2. Hypoxia. 3. Hypokalemia. 4. Hyponatremia. 5. Hypochloremia. 6. Type 2 diabetes mellitus with hyperglycemia. 7. Chronic diastolic congestive heart failure. 8. Lactic acidosis. 9. Acute myocardial insufficiency due to hypoxia. 10. Moderate protein-calorie malnutrition. 11. Hypertensive heart disease with slight blood pressure elevations at this time. PLAN: 1. Nasal oxygen. 2. Empiric steroid. 3. Anticoagulation with Lovenox. 4. Hydrate with saline. 5. Hold diuretics. 6. Serial lactic acid and electrolyte evaluation. 7. Taper oxygen as able. 8. Await COVID-19 PCR swab . 9. Trend natriuretic peptide assay. Zaid Rosado M.D. DR: Matt JOB#: [id number] CC:
--- NOTE | 2020-03-16 07:32 | NUR ---
NURSE NOTES: RN delivered the rest of patient's belongings to [facility] and faxed the signed belonging sheet to [id number]. Thony received the fax and filed it to patient's chart.
--- NOTE | 2020-03-16 16:23 | Discharge Summary ---
Discharge Summary Discharge Summary _ Date of admission: 03/04/2020 Date of discharge: 03/11/[address] Poole History of Present Illness and Brief Hospital Course Ms. Galicia is a 69-year-old female with history of diabetes mellitus and hypertension who presented to the ED for evaluation of weakness and cough x7 days. Associated symptoms included generalized weakness, and body ache. She was hypoxic on arrival and was placed on low-flow oxygen in ER. Initial chest x-ray was notable for multifocal bilateral airspace opacities consistent with multifocal pneumonia. Rapid COVID-19 test was not available in the ED at the time. Patient was empirically treated with antibiotics, steroid, and Lovenox in ER and was admitted to the hospital for further management. Given her chest x-ray findings and clinical presentation, she was started on broad-spectrum antibiotics and steroid. Patient was placed in respiratory isolation room. Patient did test positive for COVID-19 via PCR. Patient was given 1 dose of ivermectin as well. Over the course of her stay, patient's medical condition improved. Patient required less oxygen and was stable on low-flow oxygen. On the day of her discharge, patient was medically stable on 2 L of oxygen via nasal cannula. She was transferred to [facility] rehab for continued care and recovery. Consultants: Cardiology Dr. Rosado Infectious disease Dr. Diaz Pulmonology Dr. Camp Discharge Condition Improved and stable Final diagnoses COVID-19 pneumonia Hypoxic respiratory failure Hypertension Diabetes mellitus with hyperglycemia Hypokalemia Lactic acidosis Diarrhea I have been assigned to dictate discharge summary for this account. I was not involved in the patient's management John Rucker Mar 16, 2020 16:23
== END 2020-03-11 16:35 | DRG 177 ==
LOC: EDBD 22:59 → EMR 23:12 → 4E 23:16 → EDBEDREQ 23:51
DX: U07.1 COVID-19 (principal); J12.82 Pneumonia due to coronavirus disease 2019; J96.01 Acute respiratory failure with hypoxia; I50.33 Acute on chronic diastolic (congestive) heart failure; E44.0 Moderate protein-calorie malnutrition; E11.65 Type 2 diabetes mellitus with hyperglycemia; E87.6 Hypokalemia; I11.0 Hypertensive heart disease with heart failure; E87.8 Other disorders of electrolyte and fluid balance, not elsewhere classified; I51.3 Intracardiac thrombosis, not elsewhere classified; R68.0 Hypothermia, not associated with low environmental temperature; R19.7 Diarrhea, unspecified
CPT/HCPCS: 36415; 71045; 80048; 80053; 81003; 82550; 82553; 82728; 82962; 83036; 83605; 83615; 83690; 83735; 83880; 84443; 84484; 85007; 85025; 85379; 85610; 85730; 86140; 87040; 87324; 93005; 96361; 96365; 96367; 96375; 99291; J1815; J2405; J7030; J8499; S5561